=== PATIENT | male | born 1995 | race Caucasian/White ===

== ENCOUNTER 2020-02-20 09:50 | Outpatient (REF) | payer OTHER, SELFPAY ==
[2020-02-20 11:15] LABS: MANUAL DIFF FLAG NO
[2020-02-20 11:29] LABS: Basophils Percent Auto 0.4 % (0-2); Eosinophils Absolute Auto 0.3 X10*3/uL (0.0-0.4); Eosinophils Percent Auto 3.5 % (0-4); Hematocrit 46.7 % (42-52); Hemoglobin 15.3 g/dl (14.0-18.0); Imm Gran Abs Auto 0.03 X10*3/uL (0.00-0.03); Imm Gran Pct Auto 0.4 % (0.0-0.4); Lymphocytes Absolute Auto 3.3 X10*3/uL (1.2-4.9); Lymphocytes Percent Auto 42.6 % (20-40); Mean Corpuscular HGB Conc 32.8 g/dl (31.0-36.0); Mean Corpuscular Hemoglobin 28.1 pg (27.0-33.0); Mean Corpuscular Volume 85.7 fL (80-98); Mean Platelet Volume 9.8 fL (9.4-12.4); Monocytes Absolute Auto 0.7 X10*3/uL (0.1-1.2); Monocytes Percent Auto 9.4 % (2-11); Neutrophils Absolute Auto 3.4 X10*3/uL (2.0-8.3); Neutrophils Percent Auto 43.7 % (45-73); Platelet Count 331 X10*3/uL (160-400); Red Blood Count 5.45 X10*6/uL (4.60-5.80); Red Cell Distribution Width 13.7 % (11.0-16.0); White Blood Count 7.7 X10*3/uL (4.8-10.8)
[2020-02-20 12:16] LABS: Alanine Aminotransferase 40 U/L (0-40); Albumin Level 4.8 g/dL (3.5-5.0); Alkaline Phosphatase 88 U/L (39-117); Anion Gap 16 (12-20); Aspartate Amino Transferase 24 U/L (5-37); Bilirubin Total 0.5 mg/dL (0.0-1.0); Blood Urea Nitrogen 12 mg/dL (9-16); Calcium 9.4 mg/dL (8.4-10.2); Carbon Dioxide 24 mmol/L (22-29); Chloride 104 mmol/L (96-108); Cholesterol 168 mg/dL; Estimated Glomerular Filt Rate > 60; Glucose Fasting 91 mg/dL (60-99); HDL Cholesterol 6 mg/dL; LDL Cholesterol Calculated 110 mg/dl; Potassium 4.6 mmol/l (3.3-5.1); Sodium 139 mmol/L (135-145); Total Protein 7.2 g/dL (6.5-8.0); Triglycerides 264 mg/dL
== END 2020-02-20 09:51 | disposition home or self-care (01) ==
LOC: HO.LAB 09:50
PROVIDERS: PCP Internal Medicine; Visit Provider Internal Medicine
DX: F32.9 Major depressive disorder, single episode, unspecified (principal); E11.9 Type 2 diabetes mellitus without complications
CPT/HCPCS: 36415; 80053; 80061; 85025

== ENCOUNTER 2020-07-15 03:40 | Emergency (ER) | payer OTHER, SELFPAY ==
[2020-07-15 03:55] VITALS: BP 150/64; PULSE 94; RESP 20; TEMP 36.7; O2SAT 99; BMI 55.3
== END 2020-07-15 05:47 | disposition left against medical advice (07) ==
PROVIDERS: Emergency Provider Emergency Medicine; PCP Internal Medicine
DX: F41.9 Anxiety disorder, unspecified (principal)
CPT/HCPCS: 99282

== ENCOUNTER 2021-04-27 12:03 | Emergency (ER) | payer OTHER, SELFPAY ==
[2021-04-27 12:18] VITALS: BP 130/85; PULSE 98; O2SAT 97
== END 2021-04-27 19:36 | disposition left against medical advice (07) ==
PROVIDERS: Emergency Provider Emergency Medicine
DX: S51.812A Laceration without foreign body of left forearm, initial encounter (principal); W26.0XXA Contact with knife, initial encounter; Y93.9 Activity, unspecified; Y92.9 Unspecified place or not applicable; Y99.9 Unspecified external cause status
CPT/HCPCS: 99281; 99282

== ENCOUNTER 2021-09-05 19:33 | Emergency (ER) | payer MEDICARE, MEDICAID, SELFPAY ==
--- NOTE | 2021-09-05 19:58 | ED.DENTAL ---
HPI - Dental/Oral General Chief complaint: Dental/Oral Stated complaint: tooth pain Time Seen by Provider: 09/05/21 19:58 Source: patient Mode of arrival: ambulatory Limitations: no limitations History of Present Illness HPI Narrative: patient with chronic dental cavities plan to see a dentist complaining of increased pain in right premolar and molar area for last 1 week with cold sensitivity no fever no chills no gum swelling Related Data Home Medications Medication Instructions Recorded Confirmed atomoxetine 10 mg capsule 10 mg PO QAM 02/15/20 02/15/20 gabapentin 600 mg tablet 600 mg PO TID 02/15/20 02/15/20 ibuprofen 600 mg tablet mg PO 02/15/20 02/15/20 Previous Rx's Medication Instructions Recorded amoxicillin 875 mg-potassium 1 tab PO BID #20 tab 09/05/21 clavulanate 125 mg tablet oxycodone-acetaminophen 5 mg-325 1 tab PO Q6H PRN #20 tab 09/05/21 mg tablet (Percocet) Allergies Allergy/AdvReac Type Severity Reaction Status Date / Time No Known Allergies Allergy Verified 02/15/20 13:05 [No Known Allergies*] Review of Systems Review of Systems: Yes all other systems are reviewed and are negative [facility] Past Medical History Medical History Depression Surgical History No pertinent past surgical history Family History Family History Father No problems noted. Mother No problems noted. Social History Social History Alcohol intake: never Advance Directives: No Advance Directives Information Provided: Yes Physical Exam Vital Signs: Vital Signs: Last Vital Signs Temp 97.2 F 09/05/21 20:00 Pulse 100 09/05/21 20:00 Resp 16 09/05/21 20:00 BP 133/69 09/05/21 20:00 Pulse Ox 98 09/05/21 20:00 BMI result Body Mass Index 28.1 Const: General: comfortable and no acute distress HEENT: Mouth: Normal oral and palatal mucosa present Teeth and gingiva: gingiva normal and caries Teeth image: 1. diffuse dental cavities with multiple missing teeth Throat: Yes posterior oropharynx normal MDM - Dental/Oral MDM Narrative Medical decision making narrative: patient with diffuse dental caries plan to see dentist discharge him on Augmentin and Percocet Discharge Plan Discharge Clinical Impression: Toothache Patient Disposition: Home, Self-Care Instructions: Toothache (ED) Additional Instructions: take pain medication as prescribed follow-up with dentist for further management Prescriptions: New oxycodone-acetaminophen [Percocet] 5-325 mg tablet 1 tab PO Q6H PRN (Reason: pain) Qty: 20 0RF amoxicillin-pot clavulanate 875-125 mg tablet 1 tab PO BID Qty: 20 0RF No Action gabapentin 600 mg tablet 600 mg PO TID 0RF atomoxetine 10 mg capsule 10 mg PO QAM 0RF ibuprofen 600 mg tablet PO 0RF
[2021-09-05 20:00] VITALS: BP 133/69; PULSE 100; RESP 16; TEMP 36.2; O2SAT 98; BMI 28.1
== END 2021-09-05 20:13 | disposition home or self-care (01) ==
PROVIDERS: Emergency Provider Internal Medicine; PCP Internal Medicine
DX: K08.89 Other specified disorders of teeth and supporting structures (principal); Z79.899 Other long term (current) drug therapy
CPT/HCPCS: 99283

== ENCOUNTER 2021-11-30 14:51 | Emergency (ER) | payer MEDICARE, MEDICAID, SELFPAY ==
[2021-11-30 15:51] VITALS: BP 150/80; PULSE 73; RESP 18; TEMP 36.8; O2SAT 97; BMI 36.0
== END 2021-11-30 19:15 | disposition left against medical advice (07) ==
PROVIDERS: Emergency Provider Emergency Medicine; PCP Internal Medicine
DX: R68.84 Jaw pain (principal)
CPT/HCPCS: 99281

== ENCOUNTER 2022-08-30 22:27 | Emergency (ER) | payer MEDICARE, MEDICAID, SELFPAY ==
--- NOTE | ~2022-08-30 | XR_ITS ---
EXAMINATION: XR CHEST CLINICAL INFORMATION: Wheezing COMPARISON: None available. TECHNIQUE: Frontal view of the chest was obtained. FINDINGS: No significant abnormality is noted involving the heart, lungs, mediastinum, bony thorax or soft tissues. XR/XR chest 1V IMPRESSION: Unremarkable examination.
--- NOTE | ~2022-08-30 | CT_ITS ---
EXAMINATION: CT HEAD WITHOUT CONTRAST CLINICAL INFORMATION: Head strike COMPARISON: None available. TECHNIQUE: Contiguous axial imaging was performed from the skull base to vertex without intravenous administration of contrast. This CT examination was performed using dose optimization techniques as appropriate, variously including the following: *Automated exposure control *Adjustment of mA and/or kV according to patient size (this includes techniques or standardized protocols for targeted exams where dose is matched to indication/reason for exam; i.e. extremities or head) *Use of iterative reconstruction technique DLP: 643 mGy-cm FINDINGS: There is no evidence of acute intracranial hemorrhage or territorial infarction. No abnormal mass effect or midline shift is seen. Gutierrez to white matter differentiation is well preserved. No extra-axial fluid collections are identified. No hydrocephalus. No significant volume loss. There is no abnormal attenuation within the brain parenchyma. No acute osseous or soft tissue abnormality. The mastoid air cells and visualized portions of the paranasal sinuses are well aerated. CT/CT head/brain wo IV con IMPRESSION: No acute intracranial pathology.
[2022-08-30 22:41] VITALS: BP 147/78; PULSE 93; RESP 16; TEMP 36.6; O2SAT 94; BMI 24.7
--- NOTE | 2022-08-30 22:56 | PC.NURSE ---
patient not changed into psych gown because pt is not SI or HI and is here to speak with a counselor. Will continue to monitor SI/HI status to determine need to change of address clerk
[2022-08-30 23:00] VITALS: BP 146/70; PULSE 98; O2SAT 98
--- NOTE | 2022-08-30 23:45 | ED.PSYCH ---
HPI - Psych General Chief Complaint: Psychiatric Symptoms Stated Complaint: CRISIS Time Seen by Provider: 08/30/22 23:22 Source: patient and EMS Mode of arrival: EMS Limitations: no limitations History of Present Illness HPI Narrative: 26 year old male history of depression presenting via EMS with increasing depression, anxiety, headache x1 day. Patient reports increasing life stressors and reports a is been very depressed due to his housing situation, he reports he is currently homeless and does not have a support system. He reports he feels isolated. He denies suicidal and homicidal ideation. Denies drugs, and alcohol. Current daily cigarette smoker. Patient reports a diffuse headache status post hitting his head very hard on the mirror, no loss of consciousness. Denies vision changes, fevers, chills, weakness, nausea, vomiting, abdominal pain. GCS 15. NIH stroke scale 0 Related Data Home Medications Medication Instructions Recorded Confirmed atomoxetine 10 mg capsule 10 mg PO QAM 02/15/20 02/15/20 gabapentin 600 mg tablet 600 mg PO TID 02/15/20 02/15/20 ibuprofen 600 mg tablet mg PO 02/15/20 02/15/20 Previous Rx's Medication Instructions Recorded amoxicillin 875 mg-potassium 1 tab PO BID #20 tabs 09/05/21 clavulanate 125 mg tablet oxycodone-acetaminophen 5 mg-325 1 tab PO Q6H PRN pain #20 tabs 09/05/21 mg tablet (Percocet) Allergies Allergy/AdvReac Type Severity Reaction Status Date / Time No Known Allergies Allergy Verified 02/15/20 13:05 [No Known Allergies*] Review of Systems Review of Systems: Constitutional : No Weight loss, No Fever, No Chills, No Fatigue, No Malaise ENT/Mouth : No sore throat, No Rhinorrhea Eyes: No Eye Pain, No Swelling, No Redness Cardiovascular : No Chest Pain, No SOB, No Dyspnea on Exertion, No Orthopnea, No Edema, No Palpitations Respiratory : No Cough, No Sputum, No Wheezing Gastrointestinal : No Nausea, No Vomiting, No Diarrhea, No Constipation, No abdominal Pain, No Hematochezia, No Melena Genitourinary : No Dysuria, No Urinary Frequency, No Hematuria, Musculoskeletal : No joint pain, No Myalgias, No Joint Swelling Skin : No Skin Lesions, No rash Neuro : No Weakness, No Numbness, No Dizziness, + Headache Psych : + Anxiety/Panic, + Depression, No SI or HI All other systems reviewed and are negative Yes all other systems are reviewed and are negative [facility] Past Medical History Attestation statement: The following information was validated with the patient. Source: old records reviewed and nursing notes reviewed Medical History Depression Surgical History No pertinent past surgical history Family History Family History Father No problems noted. Mother No problems noted. Social History Social History Alcohol intake: current Alcohol intake frequency: holidays/special occasions only Smoked in Last 30 Days: No Use of substances other than those prescribed or required for medical reasons: No Advance Directives: No Advance Directives Information Provided: No Physical Exam Vital Signs: Vital Signs: Last Vital Signs Temp 97.4 F 08/31/22 00:00 Pulse 62 08/31/22 00:00 Resp 16 08/31/22 00:00 BP 147/71 H 08/31/22 00:00 Pulse Ox 97 08/31/22 00:00 O2 Del Method Room Air 08/31/22 00:00 BMI result Body Mass Index 24.7 vss Appearance: Alert.? Oriented X3.? No acute distress.? Head: Normocephalic, atraumatic, no step-offs or deformities Eyes: Pupils equal, round and reactive to light.? Neck: Normal inspection.? Neck supple.? CVS: Normal heart rate and rhythm.? Pulses normal.? Respiratory: No respiratory distress.? Breath sounds wheezing throughout.? Abdomen: Soft and nontender.? Skin: Skin warm and dry.? Normal skin color.? Normal skin turgor.? Extremities: No lower extremity edema.? No calf ttp. 5/5 strength to bilateral upper and lower extremities Neuro: Oriented X 3.? No motor deficit.? No sensory deficit. CN 2-12 intact . Normal [id number], [id number]. steady tandem gait. Course Reevaluation(s) Reevaluation #1: CBC appears to be within normal limits. UA without infection. Urine toxicology negative. COVID negative. Chest x-ray unremarkable. Head CT & chemistry pending. Time: 00:37 Reevaluation #2: Chemistry with no acute findings requiring intervention. CT of head with no acute findings. At this time patient will be placed into observation to allow more time to be evaluated by behavioral health team. At time observation was started patient common cooperative no acute distress will continue to monitor Time: 01:09 Medications Administered Discontinued Medications Generic Name Dose Route Start Last Admin Trade Name Nia PRN Reason Stop Dose Admin Albuterol Sulfate 4 puff 08/30/22 23:49 08/31/22 00:26 Albuterol Sulfate 90 Mcg 8 Gm Inhaler INHALE 08/30/22 23:50 4 puff ONCE ONE Administration Medical Decision Making Medical Decision Making [facility] Narrative: 26 year old male presents with anxiety, depression due to increasing life stressors and reports headache status post hitting his head on a mirror. Newly homeless Physical exam with wheezing throughout. GCS 15. NIH stroke scale 0. Concerns for anxiety, depression. Likely concussion unlikely intracranial hemorrhage, stroke, posterior stroke. Wheezing likely secondary to asthma versus smoking. Plan medical clearance evaluation by behavioral health team Differential Diagnosis Differential Diagnoses: The differential diagnosis associated with the presentation includes Concerns for anxiety, depression. Likely concussion unlikely intracranial hemorrhage, stroke, posterior stroke. Admission/Observation Consideration of admission/observation: Escalation of care including admission/observation considered Possible psych admit Lab Data [facility] Lab Attestation statement: I reviewed the patient's lab results. 08/31/22 00:12 08/31/22 00:12 Labs: Lab Results 08/31/22 08/31/22 08/31/22 Range/Units 00:12 00:12 00:12 WBC 9.7 (4.8-10.8) X10*3/uL RBC 5.30 (4.60-5.80) X10*6/uL Hgb 14.8 (14.0-18.0) g/dl Hct 43.8 (42.0-52.0) % MCV 82.6 (80.0-98.0) fL MCH 27.9 (27.0-33.0) pg MCHC 33.8 (31.0-36.0) g/dl RDW 13.7 (11.0-16.0) % Plt Count 311 (160-400) X10*3/uL MPV 9.1 L (9.4-12.4) fL Immature Gran % (Auto) 0.3 (0.0-0.4) % Neut % (Auto) 50.5 (45-73) % Lymph % (Auto) 38.2 (20-40) % Cecil % (Auto) 7.2 (2-11) % Eos % (Auto) 3.2 (0-4) % Baso % (Auto) 0.6 (0-2) % Lymph # (Auto) 3.7 (1.2-4.9) X10*3/uL Cecil # (Auto) 0.7 (0.1-1.2) X10*3/uL Eos # (Auto) 0.3 (0.0-0.4) X10*3/uL Baso # (Auto) 0.1 (0.0-0.2) X10*3/uL Abs Immat Gran (auto) 0.03 (0.00-0.03) X10*3/uL Absolute Neuts (auto) 4.9 (2.0-8.3) x10*3/uL Absolute Nucleated RBC 0.000 (0.0-0.012) X10*3/uL Nucleated RBC % (auto) 0.0 (0.0-0.2) /100WBC Sodium 143 (135-145) mmol/L Potassium 4.0 (3.3-5.1) mmol/L Chloride 109 H (96-108) mmol/L Carbon Dioxide 25 (22-29) mmol/L Anion Gap 13 (12-20) BUN 10 (9-16) mg/dL Creatinine 0.83 (0.5-1.4) mg/dL Estim Creat Clear Calc 105.9 Estimated GFR > 60 Random Glucose 89 (60-115) mg/dL Calcium 9.5 (8.4-10.2) mg/dL Magnesium 2.2 (1.6-2.6) mg/dL Total Bilirubin 0.5 (0.0-1.0) mg/dL AST 19 (5-37) U/L ALT 30 (0-40) U/L Alkaline Phosphatase 95 (39-117) U/L Total Protein 6.6 (6.5-8.0) g/dL Albumin 4.4 (3.5-5.0) g/dL Urine Color Urine Appearance Urine pH (5.0-9.0) Ur Specific [place] (1.005-1.025) Urine Protein (Neg-Trace) mg/dL Urine Glucose (UA) (Negative) mg/dL Urine Ketones (Negative) mg/dL Urine Blood (Negative) Urine Nitrite (Negative) Ur Leukocyte Esterase (Negative) Salicylates < 5.0 L (15-30) mg/dL Urine Opiates Screen (Not Detect) Urine Fentanyl Screen (Not Detect) Acetaminophen < 17 (<30) mcg/mL Ur Barbiturates Screen (Not Detect) Ur Phencyclidine Scrn (Not Detect) Ur Amphetamines Screen (Not Detect) U Benzodiazepines Scrn (Not Detect) Urine Cocaine Screen (Not Detect) U Marijuana (THC) Screen (Not Detect) Ethyl Alcohol < 10 mg/dL COVID-19 ([facility]) Negative (Negative) COVID-19 Clin Com See Note 08/31/22 08/31/22 Range/Units 00:12 00:12 WBC (4.8-10.8) X10*3/uL RBC (4.60-5.80) X10*6/uL Hgb (14.0-18.0) g/dl Hct (42.0-52.0) % MCV (80.0-98.0) fL MCH (27.0-33.0) pg MCHC (31.0-36.0) g/dl RDW (11.0-16.0) % Plt Count (160-400) X10*3/uL MPV (9.4-12.4) fL Immature Gran % (Auto) (0.0-0.4) % Neut % (Auto) (45-73) % Lymph % (Auto) (20-40) % Cecil % (Auto) (2-11) % Eos % (Auto) (0-4) % Baso % (Auto) (0-2) % Lymph # (Auto) (1.2-4.9) X10*3/uL Cecil # (Auto) (0.1-1.2) X10*3/uL Eos # (Auto) (0.0-0.4) X10*3/uL Baso # (Auto) (0.0-0.2) X10*3/uL Abs Immat Gran (auto) (0.00-0.03) X10*3/uL Absolute Neuts (auto) (2.0-8.3) x10*3/uL Absolute Nucleated RBC (0.0-0.012) X10*3/uL Nucleated RBC % (auto) (0.0-0.2) /100WBC Sodium (135-145) mmol/L Potassium (3.3-5.1) mmol/L Chloride (96-108) mmol/L Carbon Dioxide (22-29) mmol/L Anion Gap (12-20) BUN (9-16) mg/dL Creatinine (0.5-1.4) mg/dL Estim Creat Clear Calc Estimated GFR Random Glucose (60-115) mg/dL Calcium (8.4-10.2) mg/dL Magnesium (1.6-2.6) mg/dL Total Bilirubin (0.0-1.0) mg/dL AST (5-37) U/L ALT (0-40) U/L Alkaline Phosphatase (39-117) U/L Total Protein (6.5-8.0) g/dL Albumin (3.5-5.0) g/dL Urine Color Yellow Urine Appearance Clear Urine pH 6.0 (5.0-9.0) Ur Specific [place] 1.010 (1.005-1.025) Urine Protein Negative (Neg-Trace) mg/dL Urine Glucose (UA) Negative (Negative) mg/dL Urine Ketones Negative (Negative) mg/dL Urine Blood Negative (Negative) Urine Nitrite Negative (Negative) Ur Leukocyte Esterase Trace H (Negative) Salicylates (15-30) mg/dL Urine Opiates Screen Not Detected (Not Detect) Urine Fentanyl Screen Not Detected (Not Detect) Acetaminophen (<30) mcg/mL Ur Barbiturates Screen Not Detected (Not Detect) Ur Phencyclidine Scrn Not Detected (Not Detect) Ur Amphetamines Screen Not Detected (Not Detect) U Benzodiazepines Scrn Not Detected (Not Detect) Urine Cocaine Screen Not Detected (Not Detect) U Marijuana (THC) Screen Not Detected (Not Detect) Ethyl Alcohol mg/dL COVID-19 ([facility]) (Negative) COVID-19 Clin Com Independent Interpretation I performed an independent interpretation of an: Plain X-Ray and CT Scan Critical Care Time Critical Care Time Critical Care Time: No Discharge Plan Discharge Clinical Impression: Depression, Acute anxiety, Wheezing, Concussion Patient Disposition: Still a Patient Prescriptions: No Action oxycodone-acetaminophen [Percocet] 5-325 mg tablet 1 tab PO Q6H PRN (Reason: pain) Qty: 20 0RF amoxicillin-pot clavulanate 875-125 mg tablet 1 tab PO BID Qty: 20 0RF gabapentin 600 mg tablet 600 mg PO TID atomoxetine 10 mg capsule 10 mg PO QAM ibuprofen 600 mg tablet PO Interventions: [place]-Suicide Risk Severity Scale Last Done: 08/30/22 22:49
--- NOTE | 2022-08-30 23:51 | PC.NURSE ---
per provider, pt does not need to be 1:1 due to no SI/HI. Pt is also being medically cleared at this time
--- NOTE | 2022-08-30 23:59 | PC.NURSE ---
gutierrez phone [phone]
[2022-08-31] VITALS: BP 147/71; PULSE 62; RESP 16; TEMP 36.3; O2SAT 97
--- NOTE | 2022-08-31 00:17 | MHC.EDTECH ---
THIS PCT ASSUMED CARE OF PATIENT AT 2300 ,VITALS SIGN TAKEN ,PATIENT BLOOD DRAWN ,URINE SAMPLE COLLECTED AND COVID SWAB ALL SENT TO LAB THIS PCT OFFER PATIENT FOOD ,BUT PATIENT SAID HE WAS NOT HUNGRY ,ASK FOR WATER .
[2022-08-31 00:18] LABS: MANUAL DIFF FLAG NO
[2022-08-31 00:24] LABS: Basophils Absolute Auto 0.1 X10*3/uL (0.0-0.2); Basophils Percent Auto 0.6 % (0-2); Eosinophils Absolute Auto 0.3 X10*3/uL (0.0-0.4); Eosinophils Percent Auto 3.2 % (0-4); Hematocrit 43.8 % (42.0-52.0); Hemoglobin 14.8 g/dl (14.0-18.0); Imm Gran Abs Auto 0.03 X10*3/uL (0.00-0.03); Imm Gran Pct Auto 0.3 % (0.0-0.4); Lymphocytes Absolute Auto 3.7 X10*3/uL (1.2-4.9); Lymphocytes Percent Auto 38.2 % (20-40); Mean Corpuscular HGB Conc 33.8 g/dl (31.0-36.0); Mean Corpuscular Hemoglobin 27.9 pg (27.0-33.0); Mean Corpuscular Volume 82.6 fL (80.0-98.0); Mean Platelet Volume 9.1 fL (9.4-12.4); Monocytes Absolute Auto 0.7 X10*3/uL (0.1-1.2); Monocytes Percent Auto 7.2 % (2-11); Neutrophils Absolute Auto 4.9 x10*3/uL (2.0-8.3); Neutrophils Percent Auto 50.5 % (45-73); Platelet Count 311 X10*3/uL (160-400); Red Cell Distribution Width 13.7 % (11.0-16.0); White Blood Count 9.7 X10*3/uL (4.8-10.8)
[2022-08-31 00:26] LABS: Appearance Urine Clear; Color Urine Yellow; Glucose Urine UA Negative (Negative); Leukocyte Esterase Urine Trace (Negative); Nitrite Urine Negative (Negative); UMIC TRIGGER UACC YES; Urine Blood Negative (Negative); Urine Ketones Negative (Negative); Urine Protein Negative (Neg-Trace)
[2022-08-31] MEDS: Albuterol Sulfate 90 MCG 8 GM INHALER 4 PUFF INHALE (00:26)
[2022-08-31 00:28] LABS: Bacteria Urine None Seen (None Seen); Hyaline Casts Urine 0-2 /LPF (0-2); RBC Urine 0-2 /HPF (0-2); Squamous Epithelial Cell Urine 0-2 /HPF (0-2); WBC Urine 0-5 /HPF (0-5)
[2022-08-31 00:34] LABS: Amphetamine Screen Urine Not Detected (Not Detect); Barbiturates, Urine Not Detected (Not Detect); Benzodiazepines Screen Urine Not Detected (Not Detect); COVID-19 Test Negative (Negative); Cannabinoid Screen Urine Not Detected (Not Detect); Cocaine Screen Urine Not Detected (Not Detect); Fentanyl, urine Not Detected (Not Detect); IDNOW Serial# 08D9AD1C; Opiate Screen Urine Not Detected (Not Detect); Phencyclidine Screen Urine Not Detected (Not Detect)
[2022-08-31 00:48] LABS: Alanine Aminotransferase 30 U/L (0-40); Albumin Level 4.4 g/dL (3.5-5.0); Alkaline Phosphatase 95 U/L (39-117); Anion Gap 13 (12-20); Aspartate Amino Transferase 19 U/L (5-37); Bilirubin Total 0.5 mg/dL (0.0-1.0); Blood Urea Nitrogen 10 mg/dL (9-16); Calcium 9.5 mg/dL (8.4-10.2); Carbon Dioxide 25 mmol/L (22-29); Chloride 109 mmol/L (96-108); Creatinine Clr Calc Pharmacy 105.9; Estimated Glomerular Filt Rate > 60; Ethanol < 10 mg/dL; Glucose Random 89 mg/dL (60-115); Magnesium 2.2 mg/dL (1.6-2.6); Salicylate < 5.0 mg/dL (15-30); Sodium 143 mmol/L (135-145); Total Protein 6.6 g/dL (6.5-8.0)
[2022-08-31 00:49] LABS: Acetaminophen LAB < 17 mcg/mL (<30)
--- NOTE | 2022-08-31 01:23 | PC.NURSE ---
assumed care of pt aox4 no apparent distress calm/cooperative
--- NOTE | 2022-08-31 01:46 | PC.NURSE ---
Pt ca&ox3. No signs of distress. Pt denies pain and sob. Pt resting comfortably in bed. Will continue to monitor.
--- NOTE | 2022-08-31 01:57 | PC.NURSE ---
Pt ca&ox3 and cooperative. No signs of distress. Pt denies pain and sob. Pt requesting drink. Pt given gingerale in a cup. Pt resting comfortably. Will continue to monitor.
[2022-08-31 02:11] VITALS: BP 100/60; PULSE 68; RESP 16; TEMP 36.4; O2SAT 96
--- NOTE | 2022-08-31 02:43 | PC.NURSE ---
pt sleeping respirations even and unlabored
[2022-08-31 04:32] VITALS: BP 105/51; PULSE 71; RESP 16; TEMP 36.7; O2SAT 95
--- NOTE | 2022-08-31 04:33 | MHC.EDTECH ---
VITALS AT 0432 ENTERED IN ERROR. CORRECT VITALS UPDATED.
[2022-08-31 06:42] VITALS: BP 100/50; PULSE 57; RESP 16; TEMP 36.4; O2SAT 98
--- NOTE | 2022-08-31 06:47 | PC.NURSE ---
pt ambulated to restroom and back to room steady gait aox4 no apparent distress
== END 2022-08-31 06:57 | disposition home or self-care (01) ==
PROVIDERS: Physician Assistant; Emergency Provider Internal Medicine; PCP Internal Medicine
DX: S06.0X0A Concussion without loss of consciousness, initial encounter (principal); F33.1 Major depressive disorder, recurrent, moderate; R51.9 Headache, unspecified; F41.1 Generalized anxiety disorder; F43.0 Acute stress reaction; R06.2 Wheezing; X58.XXXA Exposure to other specified factors, initial encounter; Y93.9 Activity, unspecified; Y92.9 Unspecified place or not applicable; Y99.9 Unspecified external cause status; Z20.822 Contact with and (suspected) exposure to COVID-19; Z20.828 Contact with and (suspected) exposure to other viral communicable diseases; Z79.899 Other long term (current) drug therapy
CPT/HCPCS: 70450; 71045; 80053; 80143; 80179; 80307; 81001; 83735; 85025; 87635; 99284

== ENCOUNTER 2022-10-30 12:27 | Emergency (ER) | payer MEDICARE, MEDICAID, SELFPAY ==
[2022-10-30 12:34] VITALS: BP 118/82; PULSE 102; O2SAT 98
[2022-10-30 13:02] VITALS: BP 142/83; PULSE 88; RESP 16; TEMP 36.3; O2SAT 96; BMI 27.2
--- NOTE | 2022-10-30 13:21 | ED.DENTAL ---
HPI - Dental/Oral General Chief complaint: Dental/Oral Stated complaint: PT C/O TOOTH PAIN,?'S INFECTION PER EMS Time Seen by Provider: 10/30/22 13:21 Source: patient and EMS Mode of arrival: EMS Limitations: no limitations History of Present Illness HPI Narrative: 26 yo male presenting with right upper dental pain and facial swelling that started today when he woke up. poor dental care. does not have a dentist. no fevers. no difficulty opening the jaw MD Complaint: tooth pain Location: Tooth # Teeth map: 1. decay Onset (ago): hour(s) Duration: constant Severity: moderate Severity scale (1-10): 7 Relieving factors: nothing Exacerbating factors: chewing Context: history of dental caries and poor dental care Treatment prior to arrival: none Related Data Home Medications Medication Instructions Recorded Confirmed atomoxetine 10 mg capsule 10 mg PO QAM 02/15/20 02/15/20 gabapentin 600 mg tablet 600 mg PO TID 02/15/20 02/15/20 ibuprofen 600 mg tablet mg PO 02/15/20 02/15/20 Previous Rx's Medication Instructions Recorded amoxicillin 875 mg-potassium 1 tab PO BID #20 tabs 09/05/21 clavulanate 125 mg tablet oxycodone-acetaminophen 5 mg-325 1 tab PO Q6H PRN pain #20 tabs 09/05/21 mg tablet (Percocet) amoxicillin 875 mg-potassium 1 tab PO BID #20 tabs 10/30/22 clavulanate 125 mg tablet chlorhexidine gluconate 0.12 % 15 ml buccal BID #118 mL 10/30/22 mouthwash (Peridex) ibuprofen 600 mg tablet 600 mg PO Q8H PRN pain #20 tabs 10/30/22 Allergies Allergy/AdvReac Type Severity Reaction Status Date / Time No Known Allergies Allergy Verified 10/30/22 13:02 [No Known Allergies*] Review of Systems Review of Systems: Yes all other systems are reviewed and are negative PMFSH Past Medical History Medical History Depression Surgical History No pertinent past surgical history Family History Family History Father No problems noted. Mother No problems noted. Social History Social History Alcohol intake: current Alcohol intake frequency: holidays/special occasions only Advance Directives: No Advance Directives Information Provided: Yes Physical Exam Vital Signs: Vital Signs: Last Vital Signs Temp 97.4 F 10/30/22 13:02 Pulse 88 10/30/22 13:02 Resp 16 10/30/22 13:02 BP 142/83 H 10/30/22 13:02 Pulse Ox 96 10/30/22 13:02 O2 Del Method Room Air 10/30/22 13:02 BMI result Body Mass Index 27.2 Appearance: Alert. Oriented X3. No acute distress. HEENT: normocephalic, face is symmetric. poor dentition w/ several missing teeth and decay. right upper lateral incisor with decay and erosion, tender associated gums without fluctuance. no trismus CVS: Normal heart rate and rhythm. Pulses normal. Respiratory: No respiratory distress. Skin: Skin warm and dry. Normal skin color. Normal skin turgor. No rashes. Extremities: normal inspection x4 Neuro: Oriented X 3. nonfocal Medical Decision Making Medical Decision Making MDM Narrative: 26 yo male with poor dental care, several missing teeth presents w/ upper right dental pain since this morning. no palpable abscess on exam. will start abx, pain control. emergent list of dentists provided. stable for d/c home. return precautions discussed Differential Diagnosis Differential Diagnoses: The differential diagnosis associated with the presentation includes toothache, dental abscess, dental trauma, dental decay Independent Historian Clinical information obtained from an independent historian. History obtained from or confirmed by: EMS External Record Review External record reviewed: Outpatient record, Prior outpatient labs and Prior outpatient radiology Prescription Management I considered prescription management with: Pain Medication and Antibiotic Social Determinants Patient?s care significantly limited by Social Determinants of Health including: Other Social Determinant of Health (lack of access to oral care) Critical Care Time Critical Care Time Critical Care Time: No Discharge Plan Discharge Clinical Impression: Toothache, Dental caries Patient Disposition: Home, Self-Care Instructions: Toothache (ED) Additional Instructions: Take the prescribed antibiotics as directed, complete the entire course and do not miss any doses Follow up with a dentist as soon as possible Prescriptions: New amoxicillin-pot clavulanate 875-125 mg tablet 1 tab PO BID Qty: 20 0RF ibuprofen 600 mg tablet 600 mg PO Q8H PRN (Reason: pain) Qty: 20 0RF chlorhexidine gluconate [Peridex] 0.12 % mouthwash 15 ml buccal BID Qty: 118 0RF No Action oxycodone-acetaminophen [Percocet] 5-325 mg tablet 1 tab PO Q6H PRN (Reason: pain) Qty: 20 0RF amoxicillin-pot clavulanate 875-125 mg tablet 1 tab PO BID Qty: 20 0RF gabapentin 600 mg tablet 600 mg PO TID atomoxetine 10 mg capsule 10 mg PO QAM ibuprofen 600 mg tablet PO Interventions: ED Discharge Assessment Last Done: 10/30/22 13:32 Discharge Date/Time: 10/30/22 13:33
== END 2022-10-30 13:33 | disposition home or self-care (01) ==
LOC: HO.ED 13:30
PROVIDERS: Emergency Provider Student in an Organized Health Care Education/Training Program; PCP Internal Medicine
DX: K02.9 Dental caries, unspecified (principal); K08.89 Other specified disorders of teeth and supporting structures
CPT/HCPCS: 99282; 99283

== ENCOUNTER 2024-01-12 13:11 | Inpatient (IN) | payer MEDICARE, MEDICAID, SELFPAY ==
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
[2024-01-12 13:22] VITALS: BP 114/67; BP 152/90; PULSE 88; PULSE 89; RESP 16; TEMP 36.8; O2SAT 95; O2SAT 98; BMI 23.5
--- NOTE | 2024-01-12 13:28 | MHC.CARE ---
T/W spoke with Jennie from [facility] who reported that Pt would be arriving to the ED via EMS on a voluntary basis. Pt is not on a Section 12a from [facility]. Jennie reported Pt does self harm at baseline however has been banging his head against the wall at home and his ADL's are diminished. She stated that there are flies buzzing around his room and that his teeth are becoming infected. Pt reported to clinician that he hopes his teeth become infected and it kills him therefore he has not been to the dentist. Pt endorses SI with no specific plan and has a history of suicide attempts. Jennie will be completing an assessment and faxing it over. Her disposition will be IPLOC.
[2024-01-12 14:04] VITALS: RESP 14
[2024-01-12 14:12] LABS: MANUAL DIFF FLAG NO
[2024-01-12 14:14] LABS: Basophils Absolute Auto 0.1 X10*3/uL (0.0-0.2); Eosinophils Absolute Auto 0.2 X10*3/uL (0.0-0.4); Eosinophils Percent Auto 3.2 % (0-4); Hematocrit 46.3 % (42.0-52.0); Hemoglobin 15.6 g/dl (14.0-18.0); Imm Gran Abs Auto 0.02 X10*3/uL (0.00-0.03); Imm Gran Pct Auto 0.3 % (0.0-0.4); Lymphocytes Absolute Auto 2.7 X10*3/uL (1.2-4.9); Mean Corpuscular HGB Conc 33.7 g/dl (31.0-36.0); Mean Corpuscular Hemoglobin 28.6 pg (27.0-33.0); Mean Platelet Volume 9.3 fL (9.4-12.4); Monocytes Absolute Auto 0.5 X10*3/uL (0.1-1.2); Monocytes Percent Auto 7.4 % (2-11); Neutrophils Absolute Auto 3.3 x10*3/uL (2.0-8.3); Neutrophils Percent Auto 48.1 % (45-73); Platelet Count 303 X10*3/uL (160-400); Red Blood Count 5.45 X10*6/uL (4.60-5.80); White Blood Count 6.8 X10*3/uL (4.8-10.8)
[2024-01-12 14:16] LABS: Appearance Urine Clear; Color Urine Yellow; Glucose Urine UA Negative (Negative); Leukocyte Esterase Urine Negative (Negative); Nitrite Urine Negative (Negative); Urine Blood Negative (Negative); Urine Ketones Trace mg/dL (Negative); Urine Protein Negative (Neg-Trace)
[2024-01-12 14:32] LABS: Alanine Aminotransferase 16 U/L (0-40); Albumin Level 4.8 g/dL (3.5-5.0); Alkaline Phosphatase 97 U/L (39-117); Anion Gap 13 (12-20); Aspartate Amino Transferase 18 U/L (5-37); Bilirubin Total 0.4 mg/dL (0.0-1.0); Blood Urea Nitrogen 12 mg/dL (9-16); Calcium 10.1 mg/dL (8.4-10.2); Carbon Dioxide 26 mmol/L (22-29); Chloride 108 mmol/L (96-108); Creatinine Clr Calc Pharmacy 103.6; Estimated Glomerular Filt Rate > 60; Ethanol < 10 mg/dL; Glucose Random 94 mg/dL (60-115); Potassium 3.7 mmol/L (3.3-5.1); Sodium 143 mmol/L (135-145); Total Protein 7.4 g/dL (6.5-8.0)
[2024-01-12 14:32] LABS: Amphetamine Screen Urine Not Detected (Not Detect); Barbiturates, Urine Not Detected (Not Detect); Benzodiazepines Screen Urine Not Detected (Not Detect); Buprenorphine Scr Not Detected (Not Detect); Cannabinoid Screen Urine POSITIVE (Not Detect); Cocaine Screen Urine Not Detected (Not Detect); Fentanyl, urine Not Detected (Not Detect); Methadone Screen, Urine Not Detected (Not Detect); Opiate Screen Urine Not Detected (Not Detect); Oxycodone Screen Urine Not Detected (Not Detect); Phencyclidine Screen Urine Not Detected (Not Detect)
[2024-01-12 18:00] VITALS: BP 144/91; PULSE 80; RESP 16; TEMP 36.6; O2SAT 98
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
[2024-01-12 19:54] VITALS: BMI 23.3
[2024-01-12 20:00] VITALS: BP 139/60; PULSE 68; TEMP 36.4; O2SAT 98
[2024-01-12] MEDS: Flu Vacc TS2024-25(6mos up)/PF 0.5 ML SYRINGE IM (20:46)
[2024-01-12] MEDS: Gabapentin 100 MG CAPSULE PO (20:49)
[2024-01-13 08:00] VITALS: BP 96/55; TEMP 36.7; O2SAT 98
--- NOTE | 2024-01-13 08:55 | HO.PSYADMNOT ---
HPI Chief Complaint: depression, si [facility] Medical History Depression Surgical History No pertinent past surgical history Diagnostics Vital Signs (24Hr): Vital Signs - 24 hr 01/12/24 13:22 01/12/24 14:04 01/12/24 18:00 Temperature 98.2 F 98 F Pulse Rate 89 80 Respiratory Rate 16 14 16 Blood Pressure 114/67 144/91 H Pulse Oximetry 95 98 Oxygen Delivery Method Room Air Room Air 01/12/24 20:00 Temperature 97.5 F Pulse Rate 68 Respiratory Rate Blood Pressure 139/60 Pulse Oximetry 98 Oxygen Delivery Method Room Air BMI result Body Mass Index 23.3 Labs 01/12/24 14:06 01/12/24 14:06 Labs: Laboratory Results - last 48 hr 01/12/24 01/12/24 14:06 14:08 WBC 6.8 RBC 5.45 Hgb 15.6 Hct 46.3 MCV 85.0 MCH 28.6 MCHC 33.7 RDW 13.0 Plt Count 303 MPV 9.3 L Immature Gran % (Auto) 0.3 Neut % (Auto) 48.1 Lymph % (Auto) 40.0 [place] % (Auto) 7.4 Eos % (Auto) 3.2 Baso % (Auto) 1.0 Lymph # (Auto) 2.7 [place] # (Auto) 0.5 Eos # (Auto) 0.2 Baso # (Auto) 0.1 Abs Immat Gran (auto) 0.02 Absolute Neuts (auto) 3.3 Absolute Nucleated RBC 0.000 Nucleated RBC % (auto) 0.0 Sodium 143 Potassium 3.7 Chloride 108 Carbon Dioxide 26 Anion Gap 13 BUN 12 Creatinine 1.01 Estim Creat Clear Calc 103.6 Estimated GFR > 60 Random Glucose 94 Calcium 10.1 D Total Bilirubin 0.4 AST 18 ALT 16 Alkaline Phosphatase 97 Total Protein 7.4 Albumin 4.8 Urine Color Yellow Urine Appearance Clear Urine pH 6.0 Ur Specific [place] 1.020 Urine Protein Negative Urine Glucose (UA) Negative Urine Ketones Trace Urine Blood Negative Urine Nitrite Negative Ur Leukocyte Esterase Negative Urine Opiates Screen Not Detected Ur Buprenorphine Scrn Not Detected Ur Oxycodone Screen Not Detected Urine Methadone Screen Not Detected Urine Fentanyl Screen Not Detected Ur Barbiturates Screen Not Detected Ur Phencyclidine Scrn Not Detected Ur Amphetamines Screen Not Detected U Benzodiazepines Scrn Not Detected Urine Cocaine Screen Not Detected U Marijuana (THC) Screen POSITIVE H Ethyl Alcohol < 10 Meds/Allergies Meds Home Medications ?Medication ?Instructions ?Recorded ?Confirmed ?Type bupropion HCl 150 mg tablet,12 hr 150 mg PO DAILY 01/12/24 01/12/24 History sustained-release gabapentin 100 mg capsule 100 mg PO TID 01/12/24 01/12/24 History lisdexamfetamine 20 mg capsule 20 mg PO QAM 01/12/24 01/12/24 History (Vyvanse) Allergies Allergies Allergy/AdvReac Type Severity Reaction Status Date / Time No Known Allergies Allergy Verified 01/12/24 13:24 [No Known Allergies*] Assessment & Plan Statement Statement: I have reviewed the history and physical and performed a pertinent examination on my patient. No changes have occurred unless specified. If the History and Physical was not performed prior to admission, the Hospitalist's service will be consulted for completing the admission physical. Time Spent With Patient Time: Total time managing care of this patient today ____ minutes.
[2024-01-13 09:07] LABS: Cholesterol 122 mg/dL (<200); HDL Cholesterol 19 mg/dL (>40); LDL Cholesterol Calculated 83 mg/dL (<100); Magnesium 2.2 mg/dL (1.6-2.6); Triglycerides 104 mg/dL (<150)
[2024-01-13] MEDS: buPROPion HCl XL 150 MG TAB.ER.24H PO (09:25)
[2024-01-13] MEDS: Gabapentin 100 MG CAPSULE PO ×3 (09:25→20:23)
[2024-01-13 09:29] LABS: Estimated Average Glucose 100 mg/dL; Hemoglobin A1C 118.5047 umol/L; Hemoglobin A1c % 5.1 % (<6.0); Total Hemoglobin (HGBA1C) 3718.5839 umol/L
[2024-01-13 09:40] LABS: Folate 5.8 ng/mL (> or = 4.0); Vitamin B12 326 pg/mL (200-900)
[2024-01-13 09:54] LABS: Free T4 (Free Thyroxine) 0.95 ng/dL (0.71-1.85); Thyroid Stimulating Hormone 0.51 uIU/mL (0.32-4.0)
--- NOTE | 2024-01-13 13:00 | P.HPPS_ITS ---
HPI Date of Service: 01/13/24 Chief Complaint: depression, si Sources of Information: patient interviewed, chart reviewed and crisis/core team assessment reviewed HPI Subjective Notes: [place] Warning and Conditional Voluntary Narrative: Patient is a 28-year-old male with history of MDD and PTSD who was assessed by [facility] crisis d/t suicidal ideation secondary to increased depressive symptoms. Per crisis report, patient became emotionally dysregulated and started self- harming by punching his head and hitting thompson. Patient reported feelings of worthlessness and social isolation. Patient reports he has been dealing with ongoing life stressors and increased depressive symptoms which are impacting his daily functioning. He reported suicidal ideation with no plan. Reports he has been purposely ignoring his dental needs in the hopes that his teeth will get infected and ultimately end his life. Patient denies HI/VH/AH. Patient sees Dr. Marr at [facility] for his psychiatric prescriber. During admission assessment, alert and oriented x3. Calm and cooperative. Patient reports feeling depressed; patient stated, I am having suicidal thoughts. I feel depressed and lonely. I have been very isolated for the last 2 years since I moved back home. I was living in a nursing home but I got bullied by the other residents. I feel negative all the time . Patient reports suicidal ideation with plan to hang himself. Patient stated, I really want help. I would not act on those thoughts . Patient future oriented; patient stated, I have goals for myself. I want to get my GED. Go to college and get my bachelor's in psychology . Patient reports he would also like to get his teeth fixed. Patient denies any concerns with his current medication regimen. He reports being medication compliant. Patient reports he would like a referral for an outpatient therapist and feels that he needs someone to talk to because he feels stuck in life. Past Psychiatric History: History of at least 3 inpatient psychiatric inpatient admissions. Last admission being 4 years ago. History of suicide attempts at the age of 17 and 21. History of self-injurious behavior via punching himself in the head and putting out cigarettes on his arm. Medical Evaluation Reviewed: Yes [facility] Medical History Depression Surgical History No pertinent past surgical history Family History: Depression Social History: Lives at home with his mother, stepfather, stepbrother, and younger brother. Single, no kids. Disability. Highest level of education completed 9th grade. Substance History: Patient reports occasionally smoking marijuana. Denies any other substance use. Trauma History: Yes Diagnostics Vital Signs (24Hr): Vital Signs - 24 hr 01/12/24 18:00 01/12/24 20:00 01/13/24 08:00 Temperature 98 F 97.5 F 98.1 F Pulse Rate 80 68 Respiratory Rate 16 Blood Pressure 144/91 H 139/60 96/55 L Pulse Oximetry 98 98 98 Oxygen Delivery Method Room Air Room Air Room Air BMI result Body Mass Index 23.3 Labs 01/12/24 14:06 01/12/24 14:06 Labs: Laboratory Results - last 48 hr 01/12/24 01/12/24 01/13/24 14:06 14:08 08:19 WBC 6.8 RBC 5.45 Hgb 15.6 Hct 46.3 MCV 85.0 MCH 28.6 MCHC 33.7 RDW 13.0 Plt Count 303 MPV 9.3 L Immature Gran % (Auto) 0.3 Neut % (Auto) 48.1 Lymph % (Auto) 40.0 [place] % (Auto) 7.4 Eos % (Auto) 3.2 Baso % (Auto) 1.0 Lymph # (Auto) 2.7 [place] # (Auto) 0.5 Eos # (Auto) 0.2 Baso # (Auto) 0.1 Abs Immat Gran (auto) 0.02 Absolute Neuts (auto) 3.3 Absolute Nucleated RBC 0.000 Nucleated RBC % (auto) 0.0 Sodium 143 Potassium 3.7 Chloride 108 Carbon Dioxide 26 Anion Gap 13 BUN 12 Creatinine 1.01 Estim Creat Clear Calc 103.6 Estimated GFR > 60 Random Glucose 94 Estimat Average Glucose 100 Hemoglobin A1c % 5.1 Calcium 10.1 D Magnesium 2.2 Total Bilirubin 0.4 AST 18 ALT 16 Alkaline Phosphatase 97 Total Protein 7.4 Albumin 4.8 Triglycerides 104 Cholesterol 122 LDL Cholesterol, Calc 83 HDL Cholesterol 19 L Vitamin B12 326 Folate 5.8 TSH 0.51 Free T4 0.95 Urine Color Yellow Urine Appearance Clear Urine pH 6.0 Ur Specific [place] 1.020 Urine Protein Negative Urine Glucose (UA) Negative Urine Ketones Trace Urine Blood Negative Urine Nitrite Negative Ur Leukocyte Esterase Negative Urine Opiates Screen Not Detected Ur Buprenorphine Scrn Not Detected Ur Oxycodone Screen Not Detected Urine Methadone Screen Not Detected Urine Fentanyl Screen Not Detected Ur Barbiturates Screen Not Detected Ur Phencyclidine Scrn Not Detected Ur Amphetamines Screen Not Detected U Benzodiazepines Scrn Not Detected Urine Cocaine Screen Not Detected U Marijuana (THC) Screen POSITIVE H Ethyl Alcohol < 10 Meds/Allergies Meds Home Medications ?Medication ?Instructions ?Recorded ?Confirmed ?Type bupropion HCl 150 mg tablet,12 hr 150 mg PO DAILY 01/12/24 01/12/24 History sustained-release gabapentin 100 mg capsule 100 mg PO TID 01/12/24 01/12/24 History lisdexamfetamine 20 mg capsule 20 mg PO QAM 01/12/24 01/12/24 History (Vyvanse) Allergies Allergies Allergy/AdvReac Type Severity Reaction Status Date / Time No Known Allergies Allergy Verified 01/12/24 13:24 [No Known Allergies*] Mental Status Exam Mental Status Exam Narrative: Pt is alert and oriented; behavior is cooperative, friendly and calm; dressed in casual attire; mood is described as depressed ; eye contact appropriate; Speech is normal rate, volume and not pressured; thought process is organized and goal directed; Thought content is on tx; denies HI/VH/AH. Patient reports suicidal ideation with plan to hang himself. Assessment & Plan Assessment & Plan (1) MDD (major depressive disorder), recurrent episode, moderate: Status: Acute Code(s): F33.1 - Major depressive disorder, recurrent, moderate (2) PTSD (post-traumatic stress disorder): Status: Acute Code(s): F43.10 - Post-traumatic stress disorder, unspecified Plan Patient is a 28-year-old male with history of MDD and PTSD who was assessed by [facility] crisis d/t suicidal ideation secondary to increased depressive symptoms. Plan: CV 15 minute safety checks Continue home medications Encourage groups Obtain collateral Referral to outpatient therapist Consider [facility] referral Discharge planning Patient educated on: diagnosis, medication risk/benefits and therapeutic strategies Reason for continued inpatient stay Substantial Risk for: harm to self and med/psych decompensation Statement Statement: I have reviewed the history and physical and performed a pertinent examination on my patient. No changes have occurred unless specified. If the History and Physical was not performed prior to admission, the Hospitalist's service will be consulted for completing the admission physical. Time Spent With Patient Time: Total time managing care of this patient today _60___ minutes.
[2024-01-13 19:58] VITALS: BP 120/59; PULSE 70; RESP 14; TEMP 36.9; O2SAT 100
[2024-01-13] MEDS: hydrOXYzine HCL 25 MG TABLET PO (20:25)
[2024-01-14 08:00] VITALS: BP 105/53; PULSE 66; RESP 16; TEMP 36.6; O2SAT 99
[2024-01-14] MEDS: buPROPion HCl XL 150 MG TAB.ER.24H PO (09:11)
[2024-01-14] MEDS: Gabapentin 100 MG CAPSULE PO ×2 (09:11→15:39)
[2024-01-14] MEDS: hydrOXYzine HCL 25 MG TABLET PO ×3 (09:13→21:33)
[2024-01-14] MEDS: Nicotine 21 MG PATCH.TD24 TRANSDERMA (10:36)
--- NOTE | 2024-01-14 15:25 | P.PNPSI_ITS ---
Subjective Subjective Date of Service: 01/14/24 Reason For Visit: depression, si Interim History: Patient presents with increased anxiety. He says he is very anxious. He reports ongoing depression. Mostly isolating in his room. Looks anxious, apprehensive and on edge. Denies active SI. Soft spoken. Review of Systems Review of Systems Yes all other systems are reviewed and are negative Constitutional: Reports as per HPI Eyes: Reports as per HPI Reports as per HPI Cardiovascular: Reports as per HPI Respiratory: Reports as per HPI Gastrointestinal: Reports as per HPI Genitourinary: Reports as per HPI Musculoskeletal: Reports as per HPI Skin/Breast: Reports as per HPI Reports as per HPI Psychiatric: Reports as per HPI Endocrine: Reports as per HPI Hematologic/Lymphatic: Reports as per HPI Allergic/Immunologic: Reports as per HPI Mental Status Exam Mental Status Exam Narrative: Pt is alert and oriented; behavior is cooperative, friendly and calm; dressed in casual attire; mood is described as depressed ; eye contact appropriate; Speech is normal rate, volume and not pressured; thought process is organized and goal directed; Thought content is on tx; denies HI/VH/AH. Patient reports suicidal ideation with plan to hang himself. Diagnostics Vital Signs (24Hr): Vital Signs - 24 hr 01/13/24 19:58 01/14/24 08:00 Temperature 98.4 F 97.8 F Pulse Rate 70 66 Respiratory Rate 14 16 Blood Pressure 120/59 L 105/53 L Pulse Oximetry 100 99 Oxygen Delivery Method Room Air BMI result Body Mass Index 23.3 Labs 01/12/24 14:06 01/12/24 14:06 Labs: Laboratory Results - last 48 hr 01/13/24 08:19 Estimat Average Glucose 100 Hemoglobin A1c % 5.1 Magnesium 2.2 Triglycerides 104 Cholesterol 122 LDL Cholesterol, Calc 83 HDL Cholesterol 19 L Vitamin B12 326 Folate 5.8 TSH 0.51 Free T4 0.95 Medications Medications Current Medications Acetaminophen (Acetaminophen 325 Mg Tablet) 650 mg PO Q6H PRN PRN Reason: Headache/Pain Mild Scale (1-3) Al Hydroxide/Mg Hydroxide (Magnesium Hydrox/Alum Hydrox 30 Ml Oral.Susp) 30 ml PO Q6H PRN PRN Reason: Heartburn/Nausea Bupropion HCl (Bupropion Hcl Xl 150 Mg Tab.Er.24h) 150 mg PO DAILY BE Last Admin: 01/14/24 09:11 Dose: 150 mg Gabapentin (Gabapentin 100 Mg Capsule) 100 mg PO TID BE Last Admin: 01/14/24 09:11 Dose: 100 mg Hydroxyzine HCl (Hydroxyzine Hcl 25 Mg Tablet) 25 mg PO Q6H PRN PRN Reason: Anxiety Last Admin: 01/14/24 09:13 Dose: 25 mg Magnesium Hydroxide (Milk Of Magnesia 30 Ml Oral.Susp) 30 ml PO DAILY PRN PRN Reason: Constipation Nicotine (Nicotine 21 Mg Patch.Td24) 21 mg TRANSDERMA DAILY PRN PRN Reason: nicotine cravings Last Admin: 01/14/24 10:36 Dose: 21 mg Nicotine Polacrilex (Nicotine Polacrilex 2 Mg Gum) 4 mg BUCCAL Q2H PRN PRN Reason: Nicotine Cravings Trazodone HCl (Trazodone Hcl 50 Mg Tablet) 50 mg PO BEDTIME MRX1 PRN PRN Reason: Insomnia Allergies Allergies Allergy/AdvReac Type Severity Reaction Status Date / Time No Known Allergies Allergy Verified 01/12/24 13:24 [No Known Allergies*] Assessment & Plan Assessment & Plan (1) MDD (major depressive disorder), recurrent episode, moderate: Status: Acute Code(s): F33.1 - Major depressive disorder, recurrent, moderate (2) PTSD (post-traumatic stress disorder): Status: Acute Code(s): F43.10 - Post-traumatic stress disorder, unspecified Plan Patient is a 28-year-old male with history of MDD and PTSD who was assessed by [facility] crisis d/t suicidal ideation secondary to increased depressive symptoms. Plan: CV 15 minute safety checks Continue home medications Encourage groups Obtain collateral Referral to outpatient therapist Consider [facility] referral Discharge planning 01/13: Increase gabapentin to 200 mg TID and add Clonidine 0.1 mg PRN anxiety. Otherwise continue current management and treatment plan. Reason for continued inpatient stay Substantial Risk for: harm to self Time Spent With Patient Time: Total time managing care of this patient today ____ minutes.
[2024-01-14 20:00] VITALS: BP 142/62; PULSE 78; RESP 15; TEMP 36.6; O2SAT 98
[2024-01-14] MEDS: Gabapentin 100 MG CAPSULE 200 MG PO (21:33)
[2024-01-15 08:00] VITALS: BP 111/55; PULSE 78; RESP 16; TEMP 36.5; O2SAT 100
[2024-01-15] MEDS: buPROPion HCl XL 150 MG TAB.ER.24H PO (09:44)
[2024-01-15 09:45] VITALS: BP 110/70
[2024-01-15] MEDS: Gabapentin 100 MG CAPSULE 200 MG PO (09:45)
[2024-01-15] MEDS: cloNIDine HCL 0.1 MG TABLET PO ×3 (09:45→20:11)
[2024-01-15] MEDS: Nicotine 21 MG PATCH.TD24 TRANSDERMA (09:47)
--- NOTE | 2024-01-15 09:53 | P.PNPSI_ITS ---
Subjective Subjective Date of Service: 01/15/24 Reason For Visit: depression, si Interim History: Patient says It really helped... says Clonidine has decreased his anxiety and increased GBP. He has no sedation. BP remains well controlled. No dizziness. Still appears somewhat apprehensive and anxious. Mostly isolating in his room. Denies active SI. Soft spoken. Review of Systems Review of Systems Yes all other systems are reviewed and are negative Constitutional: Reports as per HPI Eyes: Reports as per HPI Reports as per HPI Cardiovascular: Reports as per HPI Respiratory: Reports as per HPI Gastrointestinal: Reports as per HPI Genitourinary: Reports as per HPI Musculoskeletal: Reports as per HPI Skin/Breast: Reports as per HPI Reports as per HPI Psychiatric: Reports as per HPI Endocrine: Reports as per HPI Hematologic/Lymphatic: Reports as per HPI Allergic/Immunologic: Reports as per HPI Mental Status Exam Mental Status Exam Narrative: Pt is alert and oriented; behavior is cooperative, friendly and calm; dressed in casual attire; mood is described as depressed ; eye contact appropriate; Speech is normal rate, volume and not pressured; thought process is organized and goal directed; Thought content is on tx; denies HI/VH/AH. Patient reports suicidal ideation with plan to hang himself. Diagnostics Vital Signs (24Hr): Vital Signs - 24 hr 01/14/24 20:00 01/15/24 09:45 Temperature 97.8 F Pulse Rate 78 Respiratory Rate 15 Blood Pressure 142/62 H 110/70 Pulse Oximetry 98 BMI result Body Mass Index 23.3 Labs 01/12/24 14:06 01/12/24 14:06 Labs: Laboratory Results - last 48 hr 01/13/24 08:19 TSH 0.51 Free T4 0.95 Medications Medications Current Medications Acetaminophen (Acetaminophen 325 Mg Tablet) 650 mg PO Q6H PRN PRN Reason: Headache/Pain Mild Scale (1-3) Al Hydroxide/Mg Hydroxide (Magnesium Hydrox/Alum Hydrox 30 Ml Oral.Susp) 30 ml PO Q6H PRN PRN Reason: Heartburn/Nausea Bupropion HCl (Bupropion Hcl Xl 150 Mg Tab.Er.24h) 150 mg PO DAILY BE Last Admin: 01/15/24 09:44 Dose: 150 mg Clonidine HCl (Clonidine Hcl 0.1 Mg Tablet) 0.1 mg PO BID PRN; Protocol PRN Reason: anxiety Last Admin: 01/15/24 09:45 Dose: 0.1 mg Gabapentin (Gabapentin 100 Mg Capsule) 200 mg PO TID BE Last Admin: 01/15/24 09:45 Dose: 200 mg Hydroxyzine HCl (Hydroxyzine Hcl 25 Mg Tablet) 25 mg PO Q6H PRN PRN Reason: Anxiety Last Admin: 01/14/24 21:33 Dose: 25 mg Magnesium Hydroxide (Milk Of Magnesia 30 Ml Oral.Susp) 30 ml PO DAILY PRN PRN Reason: Constipation Nicotine (Nicotine 21 Mg Patch.Td24) 21 mg TRANSDERMA DAILY PRN PRN Reason: nicotine cravings Last Admin: 01/15/24 09:47 Dose: 21 mg Nicotine Polacrilex (Nicotine Polacrilex 2 Mg Gum) 4 mg BUCCAL Q2H PRN PRN Reason: Nicotine Cravings Trazodone HCl (Trazodone Hcl 50 Mg Tablet) 50 mg PO BEDTIME MRX1 PRN PRN Reason: Insomnia Allergies Allergies Allergy/AdvReac Type Severity Reaction Status Date / Time No Known Allergies Allergy Verified 01/12/24 13:24 [No Known Allergies*] Assessment & Plan Assessment & Plan (1) MDD (major depressive disorder), recurrent episode, moderate: Status: Acute Code(s): F33.1 - Major depressive disorder, recurrent, moderate (2) PTSD (post-traumatic stress disorder): Status: Acute Code(s): F43.10 - Post-traumatic stress disorder, unspecified Plan Patient is a 28-year-old male with history of MDD and PTSD who was assessed by [facility] crisis d/t suicidal ideation secondary to increased depressive symptoms. Plan: CV 15 minute safety checks Continue home medications Encourage groups Obtain collateral Referral to outpatient therapist Consider [facility] referral Discharge planning 01/13: Increase gabapentin to 200 mg TID and add Clonidine 0.1 mg PRN anxiety. Otherwise continue current management and treatment plan. 01/14: Increase GBP to 300 mg TID. Make Clonidine 0.1 mg TID scheduled with BP monitoring. Continue encouragement to engage in milieu. Reason for continued inpatient stay Substantial Risk for: inability to function and rapid decompensation Time Spent With Patient Time: Total time managing care of this patient today ____ minutes.
--- NOTE | 2024-01-15 12:36 | PC.NURSE ---
Gama signed a 3 day notice.
[2024-01-15 14:53] VITALS: BP 118/70
[2024-01-15] MEDS: Gabapentin 300 MG CAPSULE PO ×2 (14:53→20:11)
[2024-01-15] MEDS: hydrOXYzine HCL 25 MG TABLET PO ×2 (14:54→20:11)
[2024-01-15 19:59] VITALS: BP 119/86; PULSE 96; RESP 15; TEMP 36.6; O2SAT 99
[2024-01-16 08:00] VITALS: BP 96/55; PULSE 79; RESP 18; TEMP 36.9; O2SAT 99
[2024-01-16 08:44] VITALS: BP 111/64
[2024-01-16] MEDS: buPROPion HCl XL 150 MG TAB.ER.24H PO (08:44)
[2024-01-16] MEDS: cloNIDine HCL 0.1 MG TABLET PO (08:44)
[2024-01-16] MEDS: Gabapentin 300 MG CAPSULE PO ×3 (08:45→21:07)
--- NOTE | 2024-01-16 09:15 | P.PNPSI_ITS ---
Subjective Subjective Date of Service: 01/16/24 Reason For Visit: depression, si Subjective Notes: Conditional Voluntary Interim History: Pt slept for most of the night. He reports he has been anxious about his life circumstances. He reports he had hoped at this time in his life he would be more independent, living on his own and financially stable. He reports he plans to complete GED. He reports clonidine helping for anxiety but did note last night feeling dizzy. BP lowered this morning. He denies SI/HI. No overt psychosis or delusional. will change clonidine to once a day. Mental Status Exam Mental Status Exam Narrative: Pt is alert and oriented; behavior is cooperative, friendly and calm; dressed in casual attire; mood is described as better ; eye contact appropriate; Speech is normal rate, volume and not pressured; thought process is organized and goal directed; Thought content is on tx; denies HI/VH/AH. NO SI/HI. Diagnostics Vital Signs (24Hr): Vital Signs - 24 hr 01/15/24 09:45 01/15/24 14:53 01/15/24 19:59 Temperature 97.8 F Pulse Rate 96 Respiratory Rate 15 Blood Pressure 110/70 118/70 119/86 Pulse Oximetry 99 Oxygen Delivery Method 01/16/24 08:00 01/16/24 08:44 Temperature 98.4 F Pulse Rate 79 Respiratory Rate 18 Blood Pressure 96/55 L 111/64 Pulse Oximetry 99 Oxygen Delivery Method Room Air BMI result Body Mass Index 23.3 Labs 01/12/24 14:06 01/12/24 14:06 Medications Medications Current Medications Acetaminophen (Acetaminophen 325 Mg Tablet) 650 mg PO Q6H PRN PRN Reason: Headache/Pain Mild Scale (1-3) Al Hydroxide/Mg Hydroxide (Magnesium Hydrox/Alum Hydrox 30 Ml Oral.Susp) 30 ml PO Q6H PRN PRN Reason: Heartburn/Nausea Bupropion HCl (Bupropion Hcl Xl 150 Mg Tab.Er.24h) 150 mg PO DAILY [facility] Last Admin: 01/16/24 08:44 Dose: 150 mg Clonidine HCl (Clonidine Hcl 0.1 Mg Tablet) 0.1 mg PO TID BE; Protocol Last Admin: 01/16/24 08:44 Dose: 0.1 mg Gabapentin (Gabapentin 300 Mg Capsule) 300 mg PO TID BE Last Admin: 01/16/24 08:45 Dose: 300 mg Hydroxyzine HCl (Hydroxyzine Hcl 25 Mg Tablet) 25 mg PO Q6H PRN PRN Reason: Anxiety Last Admin: 01/15/24 20:11 Dose: 25 mg Magnesium Hydroxide (Milk Of Magnesia 30 Ml Oral.Susp) 30 ml PO DAILY PRN PRN Reason: Constipation Nicotine (Nicotine 21 Mg Patch.Td24) 21 mg TRANSDERMA DAILY PRN PRN Reason: nicotine cravings Last Admin: 01/15/24 09:47 Dose: 21 mg Nicotine Polacrilex (Nicotine Polacrilex 2 Mg Gum) 4 mg BUCCAL Q2H PRN PRN Reason: Nicotine Cravings Trazodone HCl (Trazodone Hcl 50 Mg Tablet) 50 mg PO BEDTIME MRX1 PRN PRN Reason: Insomnia Allergies Allergies Allergy/AdvReac Type Severity Reaction Status Date / Time No Known Allergies Allergy Verified 01/12/24 13:24 [No Known Allergies*] Assessment & Plan Assessment & Plan (1) MDD (major depressive disorder), recurrent episode, moderate: Status: Acute Code(s): F33.1 - Major depressive disorder, recurrent, moderate (2) PTSD (post-traumatic stress disorder): Status: Acute Code(s): F43.10 - Post-traumatic stress disorder, unspecified Plan Patient is a 28-year-old male with history of MDD and PTSD who was assessed by [facility] crisis d/t suicidal ideation secondary to increased depressive symptoms. Plan: CV 15 minute safety checks Continue home medications Encourage groups Obtain collateral Referral to outpatient therapist Consider [facility] referral Discharge planning 01/13: Increase gabapentin to 200 mg TID and add Clonidine 0.1 mg PRN anxiety. Otherwise continue current management and treatment plan. 01/14: Increase GBP to 300 mg TID. Make Clonidine 0.1 mg TID scheduled with BP monitoring. Continue encouragement to engage in milieu. 01/15 decrease clonidine to 0.1mg po daily. Reason for continued inpatient stay Substantial Risk for: inability to function Time Spent With Patient Time: Total time managing care of this patient today ____ minutes.
[2024-01-16] MEDS: Nicotine 21 MG PATCH.TD24 TRANSDERMA (14:13)
[2024-01-16 20:37] VITALS: BP 168/80; PULSE 75; RESP 18; TEMP 36.4; O2SAT 100
[2024-01-17 08:00] VITALS: BP 126/69; PULSE 85; TEMP 36.9; O2SAT 99
[2024-01-17] MEDS: Gabapentin 300 MG CAPSULE PO ×3 (08:24→20:49)
[2024-01-17] MEDS: cloNIDine HCL 0.1 MG TABLET PO (08:24)
[2024-01-17] MEDS: Nicotine 21 MG PATCH.TD24 TRANSDERMA (08:25)
[2024-01-17] MEDS: hydrOXYzine HCL 25 MG TABLET PO ×2 (08:25→17:12)
[2024-01-17] MEDS: buPROPion HCl XL 150 MG TAB.ER.24H PO (08:25)
--- NOTE | 2024-01-17 16:16 | P.PNPSI_ITS ---
Subjective Subjective Date of Service: 01/17/24 Reason For Visit: depression, si Subjective Notes: 3 Day Interim History: Reviewed with Dr. Andres. Pt reports feeling better ; pt stated, the medication is helping me. I'm eating and sleeping better . Pt reports he plans on following up with outpatient providers. denies SI/HI/VH/AH. Medication Compliance: Yes Side effects from medications: No Attending Groups: Yes Review of Systems Constitutional: Reports as per HPI Eyes: Reports as per HPI Reports as per HPI Cardiovascular: Reports as per HPI Respiratory: Reports as per HPI Gastrointestinal: Reports as per HPI Genitourinary: Reports as per HPI Musculoskeletal: Reports as per HPI Skin/Breast: Reports as per HPI Reports as per HPI Psychiatric: Reports as per HPI Endocrine: Reports as per HPI Hematologic/Lymphatic: Reports as per HPI Allergic/Immunologic: Reports as per HPI Mental Status Exam Mental Status Exam Narrative: Pt is alert and oriented; behavior is cooperative, friendly and calm; dressed in casual attire; mood is described as good ; eye contact appropriate; Speech is normal rate, volume and not pressured; thought process is organized and goal directed; Thought content is on tx; denies SI/HI/VH/AH. Diagnostics Vital Signs (24Hr): Vital Signs - 24 hr 01/16/24 20:37 01/17/24 08:00 Temperature 97.5 F 98.4 F Pulse Rate 75 85 Respiratory Rate 18 Blood Pressure 168/80 H 126/69 Pulse Oximetry 100 99 Oxygen Delivery Method Room Air Room Air BMI result Body Mass Index 23.3 Labs 01/12/24 14:06 01/12/24 14:06 Medications Medications Current Medications Acetaminophen (Acetaminophen 325 Mg Tablet) 650 mg PO Q6H PRN PRN Reason: Headache/Pain Mild Scale (1-3) Al Hydroxide/Mg Hydroxide (Magnesium Hydrox/Alum Hydrox 30 Ml Oral.Susp) 30 ml PO Q6H PRN PRN Reason: Heartburn/Nausea Bupropion HCl (Bupropion Hcl Xl 150 Mg Tab.Er.24h) 150 mg PO DAILY BE Last Admin: 01/17/24 08:25 Dose: 150 mg Clonidine HCl (Clonidine Hcl 0.1 Mg Tablet) 0.1 mg PO DAILY BE; Protocol Last Admin: 01/17/24 08:24 Dose: 0.1 mg Gabapentin (Gabapentin 300 Mg Capsule) 300 mg PO TID BE Last Admin: 01/17/24 16:13 Dose: 300 mg Hydroxyzine HCl (Hydroxyzine Hcl 25 Mg Tablet) 25 mg PO Q6H PRN PRN Reason: Anxiety Last Admin: 01/17/24 08:25 Dose: 25 mg Magnesium Hydroxide (Milk Of Magnesia 30 Ml Oral.Susp) 30 ml PO DAILY PRN PRN Reason: Constipation Nicotine (Nicotine 21 Mg Patch.Td24) 21 mg TRANSDERMA DAILY PRN PRN Reason: nicotine cravings Last Admin: 01/17/24 08:25 Dose: 21 mg Nicotine Polacrilex (Nicotine Polacrilex 2 Mg Gum) 4 mg BUCCAL Q2H PRN PRN Reason: Nicotine Cravings Trazodone HCl (Trazodone Hcl 50 Mg Tablet) 50 mg PO BEDTIME MRX1 PRN PRN Reason: Insomnia Allergies Allergies Allergy/AdvReac Type Severity Reaction Status Date / Time No Known Allergies Allergy Verified 01/12/24 13:24 [No Known Allergies*] Assessment & Plan Assessment & Plan (1) MDD (major depressive disorder), recurrent episode, moderate: Status: Acute Code(s): F33.1 - Major depressive disorder, recurrent, moderate (2) PTSD (post-traumatic stress disorder): Status: Acute Code(s): F43.10 - Post-traumatic stress disorder, unspecified Plan Patient is a 28-year-old male with history of MDD and PTSD who was assessed by [facility] crisis d/t suicidal ideation secondary to increased depressive symptoms. Plan: CV 15 minute safety checks Continue home medications Encourage groups Obtain collateral Referral to outpatient therapist Consider [facility] referral Discharge planning 01/13: Increase gabapentin to 200 mg TID and add Clonidine 0.1 mg PRN anxiety. Otherwise continue current management and treatment plan. 01/14: Increase GBP to 300 mg TID. Make Clonidine 0.1 mg TID scheduled with BP monitoring. Continue encouragement to engage in milieu. 01/15 decrease clonidine to 0.1mg po daily. 01/16: Pt reports feeling better ; pt stated, the medication is helping me. I'm eating and sleeping better . Pt reports he plans on following up with outpatient providers. denies SI/HI/VH/AH. Pt to be discharged on 3 day notice. Patient educated on: diagnosis and medication risk/benefits Reason for continued inpatient stay Substantial Risk for: stable for discharge Time Spent With Patient Time: Total time managing care of this patient today _20___ minutes.
[2024-01-17 20:00] VITALS: BP 136/67; PULSE 86; TEMP 36.8; O2SAT 99
[2024-01-18 08:00] VITALS: BP 147/67; PULSE 85; RESP 16; TEMP 36.9; O2SAT 100
[2024-01-18 08:23] VITALS: BP 147/67
[2024-01-18] MEDS: buPROPion HCl XL 150 MG TAB.ER.24H PO (08:23)
[2024-01-18] MEDS: Nicotine 21 MG PATCH.TD24 TRANSDERMA (08:23)
[2024-01-18] MEDS: cloNIDine HCL 0.1 MG TABLET PO (08:23)
[2024-01-18] MEDS: Gabapentin 300 MG CAPSULE PO (09:01)
--- NOTE | 2024-01-18 12:03 | P.DS_ITS ---
DS: Providers Provider Date of Service: 01/18/24 Date of admission: 01/12/24 15:47 Date of discharge: 01/18/24 Primary care physician: Kennedy Physician Admitting clinician: Maricarmen Rueda Attending physician on admission: Maxwell Andres Attending physician on discharge: Maxwell Andres Discharging clinician: Maricarmen Rueda DS: Diagnosis Discharge Diagnosis (1) MDD (major depressive disorder), recurrent episode, moderate: Status: Acute (2) PTSD (post-traumatic stress disorder): Status: Acute DS: Medications Discharge Medications Home Medications: Home Medications ?Medication ?Instructions ?Recorded ?Confirmed lisdexamfetamine 20 mg capsule 20 mg PO QAM 01/12/24 01/12/24 (Vyvanse) Previous Rx's ?Medication ?Instructions ?Recorded bupropion HCl 150 mg 24 hr tablet, 150 mg PO DAILY 30 days #30 tabs 01/17/24 extended release clonidine HCl 0.1 mg tablet 0.1 mg PO DAILY 30 days #30 tabs 01/17/24 gabapentin 300 mg capsule 300 mg PO TID 30 days #90 caps 01/17/24 Mental Status Exam Mental Status Exam Narrative: Pt is alert and oriented; behavior is cooperative, friendly and calm; dressed in casual attire; mood is described as good ; eye contact appropriate; Speech is normal rate, volume and not pressured; thought process is organized and goal directed; Thought content is on tx; denies SI/HI/VH/AH. Data Data Completed and Pending Completed studies during hospitalization [Text1]: 01/12/24 01/12/24 01/13/24 14:06 14:08 08:19 WBC 6.8 RBC 5.45 Hgb 15.6 Hct 46.3 MCV 85.0 MCH 28.6 MCHC 33.7 RDW 13.0 Plt Count 303 MPV 9.3 L Immature Gran % (Auto) 0.3 Neut % (Auto) 48.1 Lymph % (Auto) 40.0 [place] % (Auto) 7.4 Eos % (Auto) 3.2 Baso % (Auto) 1.0 Lymph # (Auto) 2.7 [place] # (Auto) 0.5 Eos # (Auto) 0.2 Baso # (Auto) 0.1 Abs Immat Gran (auto) 0.02 Absolute Neuts (auto) 3.3 Absolute Nucleated RBC 0.000 Nucleated RBC % (auto) 0.0 Sodium 143 Potassium 3.7 Chloride 108 Carbon Dioxide 26 Anion Gap 13 BUN 12 Creatinine 1.01 Estim Creat Clear Calc 103.6 Estimated GFR > 60 Random Glucose 94 Estimat Average Glucose 100 Hemoglobin A1c % 5.1 Calcium 10.1 D Magnesium 2.2 Total Bilirubin 0.4 AST 18 ALT 16 Alkaline Phosphatase 97 Total Protein 7.4 Albumin 4.8 Triglycerides 104 Cholesterol 122 LDL Cholesterol, Calc 83 HDL Cholesterol 19 L Vitamin B12 326 Folate 5.8 TSH 0.51 Free T4 0.95 Urine Color Yellow Urine Appearance Clear Urine pH 6.0 Ur Specific [place] 1.020 Urine Protein Negative Urine Glucose (UA) Negative Urine Ketones Trace Urine Blood Negative Urine Nitrite Negative Ur Leukocyte Esterase Negative Urine Opiates Screen Not Detected Ur Buprenorphine Scrn Not Detected Ur Oxycodone Screen Not Detected Urine Methadone Screen Not Detected Urine Fentanyl Screen Not Detected Ur Barbiturates Screen Not Detected Ur Phencyclidine Scrn Not Detected Ur Amphetamines Screen Not Detected U Benzodiazepines Scrn Not Detected Urine Cocaine Screen Not Detected U Marijuana (THC) Screen POSITIVE H Ethyl Alcohol < 10 DS: Summary Hospital Course Hospital Course: Patient is a 28-year-old male with history of MDD and PTSD who was assessed by [facility] crisis d/t suicidal ideation secondary to increased depressive symptoms. Per crisis report, patient became emotionally dysregulated and started self- harming by punching his head and hitting thompson. Patient reported feelings of worthlessness and social isolation. Patient reports he has been dealing with ongoing life stressors and increased depressive symptoms which are impacting his daily functioning. He reported suicidal ideation with no plan. Reports he has been purposely ignoring his dental needs in the hopes that his teeth will get infected and ultimately end his life. Patient denies HI/VH/AH. Patient sees Dr. Marr at [facility] for his psychiatric prescriber. During admission assessment, alert and oriented x3. Calm and cooperative. Patient reports feeling depressed; patient stated, I am having suicidal thoughts. I feel depressed and lonely. I have been very isolated for the last 2 years since I moved back home. I was living in a penitentiary but I got bullied by the other residents. I feel negative all the time . Patient reports suicidal ideation with plan to hang himself. Patient stated, I really want help. I would not act on those thoughts . Patient future oriented; patient stated, I have goals for myself. I want to get my GED. Go to college and get my bachelor's in psychology . Patient reports he would also like to get his teeth fixed. Patient denies any concerns with his current medication regimen. He reports being medication compliant. Patient reports he would like a referral for an outpatient therapist and feels that he needs someone to talk to because he feels stuck in life. Plan: CV 15 minute safety checks Continue home medications Encourage groups Obtain collateral Referral to outpatient therapist Consider PHP referral Discharge planning Increase gabapentin to 200 mg TID and add Clonidine 0.1 mg PRN anxiety. Otherwise continue current management and treatment plan. Increase GBP to 300 mg TID. Make Clonidine 0.1 mg TID scheduled with BP monitoring. Continue encouragement to engage in milieu. decrease clonidine to 0.1mg po daily. Pt reports feeling better ; pt stated, the medication is helping me. I'm eating and sleeping better . Pt reports he plans on following up with outpatient providers. denies SI/HI/VH/AH. Pt to be discharged on 3 day notice. Time spent discussing smoking cessation with patient: 3 to 10 minutes Status at Discharge Cognitive/behavioral status at discharge: Patient was interviewed prior to discharge and found to be fully oriented and without SI or HI. Patient has insight and demonstrates good judgment in terms of wanting to pursue treatment. Patient has a safety plan that includes presenting to the closest ER or calling 911 if feeling unsafe. Functional status at discharge: independent ambulation Overall status at discharge: patient is back to baseline Time Spent with Patient Time attestation: Total time managing care of this patient today _20___ minutes. Time spent: Less than 30 minutes Discharge Plan Discharge Anticipated Discharge Date/Time: 01/18/24 11:00 Patient Disposition: Home, Self-Care Discharge Diagnosis: MDD, PTSD Referrals: [facility] Partial Hospitalization Program [Other] - 01/19/24 8:00 am (This is in-person. Park in parking lot C, walk toward the [employer] trailer and look for Partial Hospitalization signs by the red brick building behind the [employer] trailer. Call Luz Cota at the above number if you have any questions. ) Psychiatry with Gary Marr [Other] - 02/07/24 10:40 am Intake for Therapy with Bianca [Other] - 01/27/24 10:00 am (If you cannot make this appointment for any reason, call them to let them know. ) [employer] [employer] Bob Richards [Other] - 1 Week Physician,None [Primary Care Provider] - 1 Week Discharge Medications: New gabapentin 300 mg Capsule 300 mg PO TID 30 Days Qty: 90 0RF bupropion HCl 150 mg Tablet Extended Release 24 Hr 150 mg PO DAILY 30 Days Qty: 30 0RF clonidine HCl 0.1 mg Tablet 0.1 mg PO DAILY 30 Days Qty: 30 0RF Protocol: Hold for SBP< HOLD for SBP < : 90 Continued lisdexamfetamine [Vyvanse] 20 mg capsule 20 mg PO QAM Discontinued bupropion HCl 150 mg tablet sustained-release 12 hr 150 mg PO DAILY gabapentin 100 mg capsule 100 mg PO TID Discharge Orders: Discharge Order (Routine); Ordered 01/18/24 Ordered By: Maricarmen Rueda Diet: Regular diet Activity on Discharge: As tolerated Stand Alone Forms: Patient Portal Discharge page, Community Support Print Language: Maori Care Plan Goals: Maintain mood and safe behaviors Take medications as prescribed Practice coping skills Continue with outpatient providers and reach out to them as needed Health Concerns: Mood stability and behaviors Plan of Treatment: Follow up with your PCP, psychiatric provider and other outpatient providers regarding above concerns Take medications as prescribed Assessment: Patient was interviewed prior to discharge and found to be fully oriented and without SI or HI. Patient has insight and demonstrates good judgment in terms of wanting to pursue treatment. Patient has a safety plan that includes presenting to the closest ER or calling 911 if feeling unsafe. Discharge Date/Time: 01/18/24 11:19
== END 2024-01-18 11:19 | disposition home or self-care (01) | DRG 885 ==
LOC: HO.ED 14:06 → HO.PM5 15:55
PROVIDERS: Physician Assistant; Admitting Provider Psychiatry & Neurology Psychiatry; Emergency Provider Student in an Organized Health Care Education/Training Program; Visit Provider Clinical Nurse Specialist Psychiatric/Mental Health, Adult
DX: F33.1 Major depressive disorder, recurrent, moderate (principal); F43.10 Post-traumatic stress disorder, unspecified; F17.210 Nicotine dependence, cigarettes, uncomplicated; Z71.6 Tobacco abuse counseling; Z79.899 Other long term (current) drug therapy
CPT/HCPCS: 36415; 80053; 80061; 80307; 81003; 82607; 82746; 83036; 83735; 84439; 84443; 85025; 90656; 99285

== ENCOUNTER → 2024-01-12 15:47 | Outpatient (BNV) | payer MEDICARE, MEDICAID, SELFPAY | PROVIDERS: Admitting Provider Psychiatry & Neurology Psychiatry; Emergency Provider Student in an Organized Health Care Education/Training Program; Visit Provider Registered Nurse | DX: F33.1 Major depressive disorder, recurrent, moderate (principal); F43.11 Post-traumatic stress disorder, acute | CPT/HCPCS: 90792; 99231; 99232; 99238 ==

== ENCOUNTER 2024-08-27 16:51 | Inpatient (IN) | payer MEDICARE, MEDICAID, SELFPAY ==
--- NOTE | ~2024-08-27 | US_ITS ---
CLINICAL HISTORY: flank pain radiating to R testicle US Renal limited Comparison: None Findings: Right kidney normal size and echotexture, 9.6 cm length. Left kidney was not evaluated. No hydronephrosis of the right kidney. Normal color Doppler IMPRESSION: 1. Unremarkable right kidney. This document has been electronically signed by: Luz Jason MD on 08/27/2024 19:34:47
--- NOTE | ~2024-08-27 | US_ITS ---
CLINICAL HISTORY: R testicular pain US Scrotum with Doppler Comparison: None Findings: Right testicle normal echotexture, 4.0 x 2.0 x 2.7 cm. Left testicle normal echotexture, 3.4 x 1.9 x 2.6 cm. Color Doppler and arterial/venous spectral tracings of both testicles within normal limits. There are multiple right-sided epididymal cysts measuring up to 3 mm in size. Unremarkable left epididymis. There is a small left-sided varicocele. There are no hydroceles. IMPRESSION: 1. Small left-sided varicocele. 2. No acute abnormality of the testes. This document has been electronically signed by: Luz Jason MD on 08/27/2024 19:34:35
[2024-08-27 17:06] VITALS: BP 140/78; BP 144/92; PULSE 104; PULSE 118; RESP 16; TEMP 36.7; O2SAT 96; O2SAT 97; BMI 22.7
--- NOTE | 2024-08-27 17:08 | ED.PSYCH ---
HPI - Psych General Chief Complaint: Psychiatric Symptoms Stated Complaint: SI Time Seen by Provider: 08/27/24 17:07 Source: patient, EMS, RN notes reviewed and old records reviewed Mode of arrival: EMS Limitations: no limitations History of Present Illness ED Provider: Carly DAVILA Narrative: Patient is a 28-year-old male with history of MDD, PTSD presenting emergency department with complaint of anxiety, depression, suicidal ideation after having an argument with his parents prior to arrival. Reports multiple recent stressors. Admits to using cocaine, denies other drug use or alcohol use. Denies homicidal ideation, auditory or visual hallucinations. Denies any intentional ingestion. States has been compliant with his Vyvanse. Complains of right flank pain radiating to his right testicle. Denies any pain with urination, hematuria, penile discharge. MD complaint: suicidal ideation and feels depressed Related Data Home Medications ?Medication ?Instructions ?Recorded ?Confirmed lisdexamfetamine 20 mg capsule 10 mg PO BID 01/12/24 08/28/24 (Vyvanse) Allergies Allergy/AdvReac Type Severity Reaction Status Date / Time No Known Allergies Allergy Verified 08/27/24 17:08 [No Known Allergies*] Review of Systems Review of Systems: As per HPI Yes all other systems are reviewed and are negative Constitutional: Constitutional: Reports as per HPI PMFSH Past Medical History Medical History Depression Surgical History No pertinent past surgical history Family History Family History Father No problems noted. Mother No problems noted. Social History Social History Household Members: Family Household Members Other:: mom and stepfather Housing: House Do you presently have visiting nurse or other home services: No Alcohol intake: current Alcohol intake frequency: holidays/special occasions only Patient Tobacco Use Status: Current everyday Tobacco user Tobacco use type: Cigarette Cigarette Packs Per Day: 1 Cigarettes Per Day: 10 Smoked in Last 30 Days: Yes e-Cigarette/Vaping Use: Never Used Patient Interested in Nicotine Replacement: Yes Patient Given Instructions on How to Stop Smoking: No Second Hand Smoke Exposure: No Use of substances other than those prescribed or required for medical reasons: Yes Substance Use Type: Crack/Cocaine Substance Use Type Other:: cocaine Substance Use Frequency: Weekly Last Used Substance: Weeks (ago) Last Used Substance Other:: cocaine Currently Displaying Signs/Symptoms of Drug Intoxication Withdrawal: No Any prior treatment program specific to substance use: No Have you been hit, kicked, punched, or otherwise hurt by someone within the past year? If so, by whom?: No Do you feel safe in your current relationship?: No Current Relationship Is there a partner from a previous relationship who is making you feel unsafe now?: No Are you made to feel afraid or neglected: No Spiritual Healthcare Practices: None Sabianist Healthcare Practices: None Cultural Healthcare Practices: None Advance Directives: No Advance Directives Information Provided: No Do you have thoughts of harming others: None Do you have a plan to hurt others: No Plan Recently lost weight without trying: Unsure How much weight loss: Not applicable Eating poorly because of decreased appetite: No Nutrition screen score: 2 Nutrition Risks: Binging/Purging and Dental problems Poor oral hygiene: Yes service: No Sexual orientation: Straight/Heterosexual Physical Exam Vital Signs: Vital Signs: Last Vital Signs Temp 97.5 F 08/29/24 08:00 Pulse 78 08/29/24 08:00 Resp 16 08/29/24 08:00 BP 101/55 L 08/29/24 08:00 Pulse Ox 96 08/29/24 08:00 O2 Del Method Room Air 08/29/24 08:00 BMI result Body Mass Index 22.7 Vital signs have been reviewed and appear to be correct. Blood pressure normal. Heart rate slightly tachycardic. Respiratory rate normal. Temperature normal. Oxygen saturation normal. Const: General: cooperative, healthy appearing and no acute distress Orientation/consciousness: oriented to person, oriented to place, oriented to time and patient oriented x3 Limitations: no limitations HEENT: Head: Yes normocephalic and Yes atraumatic Ears: external ears normal General nose exam: Normal external nose present Face and sinus: Yes face symmetric Mouth: oropharynx normal and moist mucous membranes Throat: Yes uvula midline Eyes: Pupils: Equal, round and reactive pupils present Neck: Neck: Yes normal visual inspection and Yes supple Resp: Effort & Inspection: normal respiratory effort and able to speak in complete sentences Auscultation: clear to auscultation bilaterally Cardio: Rate: regular rate Rhythm: regular rhythm Heart sounds: S1 normal heart sound present and S2 normal heart sound present GI: Palpation (GI): Soft to palpation and nontender Auscultation: normoactive bowel sounds : General: Yes CVA tenderness on the right Back/Spine/Pelvis: Back: CVA tenderness Skin: General skin exam: elasticity normal and turgor normal Neuro: General: oriented to person, oriented to place, oriented to time, patient oriented x3, moves all extremities, no focal motor deficits and CN's II-XI intact bilaterally Cranial nerves: Yes Equal, round and reactive pupils present Cognition (Neuro): normal cognition Extrem: General: Yes full ROM, Yes no pedal edema and Yes no calf tenderness Psych: Mental Status: mental status grossly normal Affect: normal affect Thought process: Normal thought process present Course Reevaluation(s) Reevaluation #1: I Shabnam Owen PA-C have accepted care of the patient and signed out pending imaging And care team consult renal ultrasound: Findings: Right kidney normal size and echotexture, 9.6 cm length. Left kidney was not evaluated. No hydronephrosis of the right kidney. Normal color Doppler IMPRESSION: 1. Unremarkable right kidney. Scrotal ultrasound:IMPRESSION: 1. Small left-sided varicocele. 2. No acute abnormality of the testes. Reevaluation #2: Time: Date: 08/28/24 Provider: Bj Moscoso MD Patient in physician observation for psychiatric evaluation.? No acute events reported overnight. No current complaints. VS stable.? Patient is in bed search status/pending CARE team evaluation. Will continue to monitor. Time: : Medications Administered Generic Name Dose Route Start Last Admin Trade Name Freq PRN Reason Stop Dose Admin Hydroxyzine HCl 25 mg 08/28/24 14:44 08/28/24 16:10 Hydroxyzine Hcl 25 Mg Tablet PO 25 mg Q6H PRN Administration mild anxiety Nicotine Polacrilex 4 mg 08/28/24 14:44 08/28/24 16:10 Nicotine Polacrilex 2 Mg Gum BUCCAL 4 mg Q2H PRN Administration Nicotine Cravings Discontinued Medications Generic Name Dose Route Start Last Admin Trade Name Freq PRN Reason Stop Dose Admin Lorazepam 1 mg 08/27/24 20:10 08/27/24 20:19 Lorazepam 1 Mg Tablet PO 08/27/24 20:11 1 mg ONCE ONE Administration Medical Decision Making Medical Decision Making [facility] Narrative: Patient is a 28-year-old male with history of MDD, PTSD presenting emergency department with complaint of anxiety, depression, suicidal ideation after having an argument with his parents prior to arrival. On exam patient is awake, A+Ox3, VS WNL, afebrile, normal neurological exam without focal deficits, physical exam findings as above. Given reported symptoms and physical exam findings, initial differential includes but is not limited to depression, anxiety, suicidal ideation, UTI, pyelonephritis, renal colic. Labs unremarkable. Urine drug screen and ethanol negative. Patient signed out to BOBBY Tam pending results of U/S. Differential Diagnosis Differential Diagnoses: The differential diagnosis associated with the presentation includes As per [facility] Admission/Observation Consideration of admission/observation: Escalation of care including admission/observation considered Patient would have been admitted to the hospital had their work up had any findings where hospital admission was appropriate and their clinical presentation warranted hospital admission. Consult Healthcare Provider Management of the patient was discussed with: Behavioral Health Provider Lab Data [facility] Lab Attestation statement: I reviewed the patient's lab results. as per [facility] 08/27/24 17:25 08/29/24 07:47 Labs: Lab Results 08/27/24 08/27/24 08/28/24 Range/Units 17:18 17:25 11:52 WBC 7.8 (4.8-10.8) X10*3/uL RBC 5.90 H (4.60-5.80) X10*6/uL Hgb 16.3 (14.0-18.0) g/dl Hct 48.8 (42.0-52.0) % MCV 82.7 (80.0-98.0) fL MCH 27.6 (27.0-33.0) pg MCHC 33.4 (31.0-36.0) g/dl RDW 13.8 (11.0-16.0) % Plt Count 359 (160-400) X10*3/uL MPV 9.2 L (9.4-12.4) fL Immature Gran % (Auto) 0.5 H (0.0-0.4) % Neut % (Auto) 51.8 (45-73) % Lymph % (Auto) 34.6 (20-40) % [place] % (Auto) 9.2 (2-11) % Eos % (Auto) 3.1 (0-4) % Baso % (Auto) 0.8 (0-2) % Lymph # (Auto) 2.7 (1.2-4.9) X10*3/uL [place] # (Auto) 0.7 (0.1-1.2) X10*3/uL Eos # (Auto) 0.2 (0.0-0.4) X10*3/uL Baso # (Auto) 0.1 (0.0-0.2) X10*3/uL Abs Immat Gran (auto) 0.04 H (0.00-0.03) X10*3/uL Absolute Neuts (auto) 4.1 (2.0-8.3) x10*3/uL Absolute Nucleated RBC 0.000 (0.0-0.012) X10*3/uL Nucleated RBC % (auto) 0.0 (0.0-0.2) /100WBC Sodium 139 (135-145) mmol/L Potassium 3.4 (3.3-5.1) mmol/L Chloride 104 (96-108) mmol/L Carbon Dioxide 25 (22-29) mmol/L Anion Gap 13 (12-20) BUN 9 (9-16) mg/dL Creatinine 0.76 (0.5-1.4) mg/dL Estim Creat Clear Calc 137.0 Estimated GFR > 60 Random Glucose 93 (60-115) mg/dL Calcium 9.4 D (8.4-10.2) mg/dL Total Bilirubin 0.4 (0.0-1.0) mg/dL AST 24 (5-37) U/L ALT 36 (0-40) U/L Alkaline Phosphatase 92 (39-117) U/L Total Protein 7.1 (6.5-8.0) g/dL Albumin 4.7 (3.5-5.0) g/dL Urine Color Yellow Urine Appearance Cloudy Urine pH 6.0 (5.0-9.0) Ur Specific [place] 1.010 (1.005-1.025) Urine Protein Negative (Neg-Trace) mg/dL Urine Glucose (UA) Negative (Negative) mg/dL Urine Ketones Negative (Negative) mg/dL Urine Blood Negative (Negative) Urine Nitrite Negative (Negative) Ur Leukocyte Esterase Negative (Negative) Urine Opiates Screen Not Detected (Not Detect) Ur Buprenorphine Scrn Not Detected (Not Detect) ng/mL Ur Oxycodone Screen Not Detected (Not Detect) ng/mL Urine Methadone Screen Not Detected (Not Detect) ng/mL Urine Fentanyl Screen Not Detected (Not Detect) Ur Barbiturates Screen Not Detected (Not Detect) Ur Phencyclidine Scrn Not Detected (Not Detect) Ur Amphetamines Screen Not Detected (Not Detect) U Benzodiazepines Scrn Not Detected (Not Detect) Urine Cocaine Screen Not Detected (Not Detect) U Marijuana (THC) Screen Not Detected (Not Detect) Ethyl Alcohol < 10 mg/dL Chlam trachomat DNA PCR Cancelled Influenza Type A (PCR) NEGATIVE (Negative) Influenza Type B (PCR) NEGATIVE (Negative) N.gonorrhoeae DNA (PCR) Cancelled RSV RNA Qual (PCR) NEGATIVE (Negative) SARS-CoV-2 RNA (RT-PCR) NEGATIVE (Negative) External Record Review External record reviewed: Inpatient record, Office record and Outpatient record Discharge Plan Discharge Clinical Impression: Suicidal ideation, Acute right flank pain Patient Disposition: Admitted As Inpatient Discharge Date/Time: 08/28/24 18:30
[2024-08-27 17:09] VITALS: RESP 16
[2024-08-27 17:34] LABS: MANUAL DIFF FLAG NO
[2024-08-27 17:39] LABS: Appearance Urine Cloudy; Color Urine Yellow; Glucose Urine UA Negative (Negative); Leukocyte Esterase Urine Negative (Negative); Nitrite Urine Negative (Negative); Urine Blood Negative (Negative); Urine Ketones Negative (Negative); Urine Protein Negative (Neg-Trace)
[2024-08-27 17:46] LABS: Basophils Absolute Auto 0.1 X10*3/uL (0.0-0.2); Basophils Percent Auto 0.8 % (0-2); Eosinophils Absolute Auto 0.2 X10*3/uL (0.0-0.4); Eosinophils Percent Auto 3.1 % (0-4); Hematocrit 48.8 % (42.0-52.0); Hemoglobin 16.3 g/dl (14.0-18.0); Imm Gran Abs Auto 0.04 X10*3/uL (0.00-0.03); Imm Gran Pct Auto 0.5 % (0.0-0.4); Lymphocytes Absolute Auto 2.7 X10*3/uL (1.2-4.9); Lymphocytes Percent Auto 34.6 % (20-40); Mean Corpuscular HGB Conc 33.4 g/dl (31.0-36.0); Mean Corpuscular Hemoglobin 27.6 pg (27.0-33.0); Mean Corpuscular Volume 82.7 fL (80.0-98.0); Mean Platelet Volume 9.2 fL (9.4-12.4); Monocytes Absolute Auto 0.7 X10*3/uL (0.1-1.2); Monocytes Percent Auto 9.2 % (2-11); Neutrophils Absolute Auto 4.1 x10*3/uL (2.0-8.3); Neutrophils Percent Auto 51.8 % (45-73); Platelet Count 359 X10*3/uL (160-400); Red Cell Distribution Width 13.8 % (11.0-16.0); White Blood Count 7.8 X10*3/uL (4.8-10.8)
[2024-08-27 17:48] LABS: Amphetamine Screen Urine Not Detected (Not Detect); Barbiturates, Urine Not Detected (Not Detect); Benzodiazepines Screen Urine Not Detected (Not Detect); Buprenorphine Scr Not Detected (Not Detect); Cannabinoid Screen Urine Not Detected (Not Detect); Cocaine Screen Urine Not Detected (Not Detect); Fentanyl, urine Not Detected (Not Detect); Methadone Screen, Urine Not Detected (Not Detect); Opiate Screen Urine Not Detected (Not Detect); Oxycodone Screen Urine Not Detected (Not Detect); Phencyclidine Screen Urine Not Detected (Not Detect)
[2024-08-27 18:01] LABS: Albumin Level 4.7 g/dL (3.5-5.0); Anion Gap 13 (12-20); Aspartate Amino Transferase 24 U/L (5-37); Bilirubin Total 0.4 mg/dL (0.0-1.0); Blood Urea Nitrogen 9 mg/dL (9-16); Calcium 9.4 mg/dL (8.4-10.2); Carbon Dioxide 25 mmol/L (22-29); Chloride 104 mmol/L (96-108); Estimated Glomerular Filt Rate > 60; Ethanol < 10 mg/dL; Glucose Random 93 mg/dL (60-115); Potassium 3.4 mmol/L (3.3-5.1); Sodium 139 mmol/L (135-145); Total Protein 7.1 g/dL (6.5-8.0)
--- NOTE | 2024-08-27 18:09 | PC.NURSE ---
pt very calm and cooperative, help seeking, familiar with pod processes due to stay back in Dec 2023.
[2024-08-27 18:10] LABS: Alanine Aminotransferase 36 U/L (0-40); Alkaline Phosphatase 92 U/L (39-117)
[2024-08-27 18:15] LABS: Influenza A PCR NEGATIVE (Negative); Influenza B PCR NEGATIVE (Negative); Resp Syncy Virus RNA Qual PCR NEGATIVE (Negative); SARS COV2 PCR INHOUSE NEGATIVE (Negative)
[2024-08-27] MEDS: LORazepam 1 MG TABLET PO (20:19)
--- NOTE | 2024-08-28 | ECG_ITS ---
Test Reason : check prolonged qt Blood Pressure : */* mmHG Vent. Rate : 55 BPM Atrial Rate : 55 BPM P-R Int : 140 ms QRS Dur : 86 ms QT Int : 404 ms P-R-T Axes : 35 1 5 degrees QTcB Int : 386 ms Sinus bradycardia Minimal voltage criteria for LVH, may be normal variant ( R in aVL ) Borderline ECG No previous ECGs available Referred By: Milton Trevizo Electronically Signed By: LESLIE UP MD
--- NOTE | 2024-08-28 00:34 | PC.NURSE ---
This RN assumed pt care @ 2300. Pt resting quietly, no signs of distress. Pt requesting and given food and drink Plan of care ongoing.
[2024-08-28 06:00] VITALS: BP 112/62; PULSE 67; RESP 16; TEMP 36.6; O2SAT 96
[2024-08-28 08:28] VITALS: BP 101/56; PULSE 64; RESP 14; TEMP 36.8; O2SAT 99
--- NOTE | 2024-08-28 10:09 | PHA.MEDREC ---
Addendum entered by Maykel Foote 08/28/24 10:12: reviewed Original Note: Pharmacy Consult ? Medication Reconciliation Pharmacy reviewed the medication reconciliation done by nursing. Spoke with patient and he confirmed he is only taking Vyvance 10mg tabs 1 BID; Nurse confirmed 2 tabs (20mg) daily. I updated the med rec according to what the patient confirmed.
--- NOTE | 2024-08-28 10:16 | PC.NURSE ---
Pt out of room asking for neha garth, skin pwd, calm and cooperative, updated on plan of care
--- NOTE | 2024-08-28 13:32 | PC.NURSE ---
Patient ambulating around unit at times, calm and cooperative, updated on plan of care
[2024-08-28 16:00] VITALS: BP 124/78; PULSE 99; RESP 18; TEMP 36.4; O2SAT 98
--- NOTE | 2024-08-28 16:01 | PC.NURSE ---
picked up from the pod at 1530
[2024-08-28] MEDS: hydrOXYzine HCL 25 MG TABLET PO (16:10)
[2024-08-28] MEDS: Nicotine Polacrilex 2 MG GUM 4 MG BUCCAL (16:10)
[2024-08-28 16:57] VITALS: BMI 24.0
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
[2024-08-28 20:00] VITALS: BP 118/58; PULSE 98; RESP 16; TEMP 36.4; O2SAT 97
[2024-08-29 08:00] VITALS: BP 101/55; PULSE 78; RESP 16; TEMP 36.4; O2SAT 96
[2024-08-29 08:19] LABS: Estimated Average Glucose 103 mg/dL; Hemoglobin A1C 129.6028 umol/L; Hemoglobin A1c % 5.2 % (<6.0); Total Hemoglobin (HGBA1C) 3881.5518 umol/L
[2024-08-29 08:38] LABS: Albumin Level 4.5 g/dL (3.5-5.0); Alkaline Phosphatase 94 U/L (39-117); Anion Gap 14 (12-20); Aspartate Amino Transferase 25 U/L (5-37); Bilirubin Total 0.3 mg/dL (0.0-1.0); Blood Urea Nitrogen 17 mg/dL (9-16); Calcium 9.1 mg/dL (8.4-10.2); Carbon Dioxide 26 mmol/L (22-29); Chloride 105 mmol/L (96-108); Cholesterol 159 mg/dL (<200); Estimated Glomerular Filt Rate > 60; Glucose Random 108 mg/dL (60-115); HDL Cholesterol 18 mg/dL (>40); LDL Cholesterol Calculated 94 mg/dL (<100); Potassium 3.7 mmol/L (3.3-5.1); Sodium 141 mmol/L (135-145); Triglycerides 236 mg/dL (<150)
[2024-08-29 08:49] LABS: Alanine Aminotransferase 34 U/L (0-40); TSH reflex Free T4 1.21 uIU/mL (0.32-4.0)
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
--- NOTE | 2024-08-29 12:52 | MHC.CLN ---
NUTRITION CONSULT-ROUTINE. NSG REPORTS PATIENT WITH NO TEETH DUE TO HX OF EATING DISORDER. WEIGHT HX REVIEWED SHOWING WEIGHT STABLE X 8 MONTHS. ENCOURAGE EASY TO CHEW FOOD CHOICES NEEDED. PLEASE CONSULT RD IF POOR PO.
[2024-08-29] MEDS: Venlafaxine HCl ER 37.5 MG CAP.ER.24H PO (16:49)
[2024-08-29 20:00] VITALS: BP 114/53; PULSE 86; RESP 18; TEMP 36.4; O2SAT 94
[2024-08-30 07:00] VITALS: BMI 24.4
[2024-08-30 08:00] VITALS: BP 106/57; PULSE 82; TEMP 36.3; O2SAT 98
[2024-08-30] MEDS: Venlafaxine HCl ER 37.5 MG CAP.ER.24H PO ×2 (08:35→10:50)
[2024-08-30] MEDS: Nicotine 21 MG PATCH.TD24 TRANSDERMA (08:52)
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
[2024-08-30 20:00] VITALS: BP 123/69; PULSE 83; RESP 16; TEMP 36.2; O2SAT 96
--- NOTE | 2024-08-31 06:03 | PC.NURSE ---
Patient incontinent of a large amount of urine, patient given clean johnnies, bed changed and waiting for housekeeping to clean a shower. Patient stated I had a nightmare . Patient reassured.
[2024-08-31 07:59] VITALS: BP 125/60; PULSE 76; TEMP 36.6; O2SAT 97
[2024-08-31] MEDS: Venlafaxine HCl ER 75 MG CAP.ER.24H PO (09:06)
[2024-08-31] MEDS: Nicotine 21 MG PATCH.TD24 TRANSDERMA (09:24)
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
[2024-08-31 20:00] VITALS: BP 125/60; PULSE 92; RESP 16; TEMP 37; O2SAT 96
[2024-09-01 08:00] VITALS: BP 105/56; PULSE 94; TEMP 36.1; O2SAT 97
[2024-09-01] MEDS: Venlafaxine HCl ER 75 MG CAP.ER.24H PO (09:01)
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
[2024-09-01 20:00] VITALS: BP 130/67; PULSE 100; RESP 16; TEMP 36.8; O2SAT 97
[2024-09-02 08:00] VITALS: BP 108/54; PULSE 76; RESP 14; TEMP 36.7; O2SAT 98
[2024-09-02] MEDS: Venlafaxine HCl ER 75 MG CAP.ER.24H PO (09:06)
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
[2024-09-02 20:00] VITALS: BP 148/56; PULSE 85; RESP 16; TEMP 36.6; O2SAT 98
[2024-09-03 07:53] VITALS: BP 113/66; PULSE 86; RESP 18; TEMP 35.7; O2SAT 97
[2024-09-03] MEDS: Venlafaxine HCl ER 75 MG CAP.ER.24H PO (08:41)
[2024-09-03] MEDS: Nicotine 21 MG PATCH.TD24 TRANSDERMA (08:41)
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
[2024-09-03 20:00] VITALS: BP 119/73; PULSE 96; TEMP 36.4; O2SAT 99
[2024-09-04 08:00] VITALS: BP 114/55; PULSE 80; TEMP 36.4; O2SAT 96
[2024-09-04] MEDS: Venlafaxine HCl ER 75 MG CAP.ER.24H PO (08:37)
--- NOTE | 2024-09-04 09:50 | P.DS_ITS ---
DS: Providers Provider Date of admission: 08/28/24 14:49 Primary care physician: Unknown Physician DS: Diagnosis Discharge Diagnosis (1) MDD (major depressive disorder), recurrent episode, moderate: Status: Acute (2) Suicidal ideation: Status: Acute DS: Medications Discharge Medications Home Medications: Previous Rx's ?Medication ?Instructions ?Recorded nicotine (polacrilex) 2 mg gum 4 mg buccal Q2H PRN Nicotine 09/03/24 Cravings #100 ea nicotine 21 mg/24 hr daily 21 mg transdermal DAILY PRN 09/03/24 transdermal patch smoking cessation #30 ea venlafaxine 75 mg capsule,extended 75 mg PO DAILY #30 caps 09/03/24 release 24 hr Data Data Completed and Pending Completed studies during hospitalization [Text1]: 08/28/24 08/29/24 11:52 07:47 Sodium 141 Potassium 3.7 Chloride 105 Carbon Dioxide 26 Anion Gap 14 BUN 17 H Creatinine 0.83 Estim Creat Clear Calc 126.0 Estimated GFR > 60 Random Glucose 108 Estimat Average Glucose 103 Hemoglobin A1c % 5.2 Calcium 9.1 Total Bilirubin 0.3 AST 25 ALT 34 Alkaline Phosphatase 94 Total Protein 7.0 Albumin 4.5 Triglycerides 236 H Cholesterol 159 LDL Cholesterol, Calc 94 HDL Cholesterol 18 L TSH 1.21 Chlam trachomat DNA PCR Cancelled N.gonorrhoeae DNA (PCR) Cancelled DS: Summary Time Spent with Patient Time attestation: Total time managing care of this patient today ____ minutes. Discharge Plan Discharge Anticipated Discharge Date/Time: 09/04/24 12:00 Patient Disposition: Home, Self-Care Discharge Diagnosis: Recurrent Major Depression Referrals: [facility] with Siomara Burgos [Other] - 10/12/24 11:00 am (Telehealth) [facility] with Cecilia [Other] - 09/04/24 3:30 pm (Cecilia has time blocked out for you today if you want to meet with her, call or text her to confirm. ) [facility] Douglas Cohen [Other] - 3-5 Days (Call and or walk-in to [facility]. Douglas will support with a fitness coach and recovery support. They can also help secure a primary care provider for you. Walk in hours: (it is better to get there in the morning) M-F: 8:30-4:30) [facility] Nelson Ivory [Other] - 09/04/24 (Nelson plans to call you today to schedule an appointment. ) Discharge Medications: New venlafaxine 75 mg Capsule,Extended Release 24hr 75 mg PO DAILY Qty: 30 0RF nicotine (polacrilex) 2 mg Gum 4 mg buccal Q2H PRN (Reason: Nicotine Cravings) Qty: 100 0RF nicotine 21 mg/24 hr Patch 24 Hour 21 mg transdermal DAILY PRN (Reason: smoking cessation) Qty: 30 0RF Discontinued lisdexamfetamine [Vyvanse] 20 mg capsule 10 mg PO BID Patient Comments: pt reports he takes every morning at 8am Discharge Orders: Discharge Order (Routine); Ordered 09/04/24 Ordered By: Yusra Short Diet: Advance to usual diet Activity on Discharge: As tolerated Stand Alone Forms: Patient Portal Discharge page, Community Support Print Language: Nepali Care Plan Goals: Mood and Behavioral Stabilization Health Concerns: Mood and Behavioral Stabilization Plan of Treatment: Attend scheduled appointments Take medications as directed Assessment: Traies SI,HI,AH,VH Pt agrees with plan of care No sx of acute psychosis or hannah
--- NOTE | 2024-09-04 11:07 | PC.NURSE ---
Pt uses nicotine. Pt offered and refused [employer] referral.
== END 2024-09-04 11:08 | disposition home or self-care (01) | DRG 885 ==
LOC: HO.ED 17:26 → HO.PM5 08-28 14:49
PROVIDERS: Registered Nurse Emergency; Admitting Provider Psychiatry & Neurology Psychiatry; Emergency Provider Student in an Organized Health Care Education/Training Program; Visit Provider Clinical Nurse Specialist Psychiatric/Mental Health, Adult
DX: F33.1 Major depressive disorder, recurrent, moderate (principal); R45.851 Suicidal ideations; F17.210 Nicotine dependence, cigarettes, uncomplicated; Z71.6 Tobacco abuse counseling; Z20.822 Contact with and (suspected) exposure to COVID-19; Z79.899 Other long term (current) drug therapy
CPT/HCPCS: 0241U; 36415; 76775; 76870; 80053; 80061; 80307; 81003; 83036; 84443; 85025; 87491; 87591; 93005; 93975; 99285; S9485

== ENCOUNTER → 2024-08-27 18:10 | Outpatient (BNV) | payer MEDICARE, MEDICAID, SELFPAY | PROVIDERS: Emergency Provider Student in an Organized Health Care Education/Training Program; Visit Provider Radiology Diagnostic Radiology | DX: N50.811 Right testicular pain (principal); R10.31 Right lower quadrant pain | CPT/HCPCS: 76775; 93975 ==

== ENCOUNTER → 2024-08-28 07:59 | Outpatient (BNV) | payer MEDICARE, MEDICAID, SELFPAY | PROVIDERS: Emergency Provider Student in an Organized Health Care Education/Training Program; Visit Provider Internal Medicine Cardiovascular Disease | DX: R00.1 Bradycardia, unspecified (principal) | CPT/HCPCS: 93010 ==

== ENCOUNTER → 2024-08-28 14:49 | Outpatient (BNV) | payer MEDICARE, MEDICAID, SELFPAY | PROVIDERS: Admitting Provider Psychiatry & Neurology Psychiatry; Emergency Provider Student in an Organized Health Care Education/Training Program; Visit Provider Nurse Practitioner Family | DX: F33.1 Major depressive disorder, recurrent, moderate (principal); R45.851 Suicidal ideations | CPT/HCPCS: 90792; 99231; 99232 ==

== ENCOUNTER → 2024-08-28 14:49 | Outpatient (BNV) | payer MEDICARE, MEDICAID, SELFPAY | PROVIDERS: Admitting Provider Psychiatry & Neurology Psychiatry; Emergency Provider Student in an Organized Health Care Education/Training Program; Visit Provider Psychiatry & Neurology Psychiatry | DX: F33.1 Major depressive disorder, recurrent, moderate (principal); R45.851 Suicidal ideations | CPT/HCPCS: 99238 ==

== ENCOUNTER 2024-09-09 19:16 | Emergency (ER) | payer MEDICARE, MEDICAID, SELFPAY ==
[2024-09-09 19:29] VITALS: BP 158/98; PULSE 130; O2SAT 97; BMI 23.5
[2024-09-09 19:32] VITALS: BP 141/76; PULSE 72; RESP 18; TEMP 36.8; O2SAT 98
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
[2024-09-09 22:13] VITALS: BP 124/67; PULSE 93; RESP 18; O2SAT 96
[2024-09-09 22:30] VITALS: BP 124/67; PULSE 93; RESP 18; TEMP 36.5; O2SAT 96
== END 2024-09-09 22:30 | disposition home or self-care (01) ==
PROVIDERS: Emergency Provider Emergency Medicine
DX: F41.0 Panic disorder [episodic paroxysmal anxiety] (principal); F41.9 Anxiety disorder, unspecified; F17.210 Nicotine dependence, cigarettes, uncomplicated; Z79.899 Other long term (current) drug therapy
CPT/HCPCS: 99284

== ENCOUNTER 2024-11-07 23:45 | Emergency (ER) | payer MEDICARE, MEDICAID, SELFPAY ==
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
[2024-11-07 23:49] VITALS: BP 132/82; PULSE 102; O2SAT 96
[2024-11-07 23:52] VITALS: BP 145/86; PULSE 102; RESP 20; TEMP 36.9; O2SAT 97; BMI 23.5
[2024-11-08 06:05] VITALS: BP 112/72; PULSE 61; RESP 16; O2SAT 96
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
[2024-11-08 07:51] VITALS: BP 118/71; PULSE 74; RESP 16; O2SAT 96
[2024-11-08 08:31] VITALS: BP 123/88; PULSE 80; RESP 16; TEMP -17.7; TEMP 0; O2SAT 99
== END 2024-11-08 08:33 | disposition home or self-care (01) ==
PROVIDERS: Emergency Provider Emergency Medicine
DX: S00.11XA Contusion of right eyelid and periocular area, initial encounter (principal); Y04.2XXA Assault by strike against or bumped into by another person, initial encounter; M54.2 Cervicalgia; Y93.89 Activity, other specified; Y92.89 Other specified places as the place of occurrence of the external cause; Y99.8 Other external cause status
CPT/HCPCS: 70450; 70486; 72125; 99284